=== PATIENT | female | born 1960 | race Caucasian/White ===

== ENCOUNTER 2017-11-12 15:00 | Outpatient (RCR) | payer BC ==
[2017-09-24 13:53] VITALS: BP 133/83
--- NOTE | 2017-09-25 09:08 | ONCOLOGY FOLLOW UP NOTE ---
EVENT DATE: September 24, 2017 REASON FOR FOLLOWUP 1. Recurrent iron deficiency anemia with history of iron infusions in the past. 2. Melena. 3. Severe fatigue. INTERIM HISTORY Esperanza returns to clinic for a follow-up visit today. She has been seen by both Drs. Hawley and Mildred in the past. She has a longstanding history of anemia, which reportedly had initially been diagnosed in 2004. A workup at that time was reportedly unremarkable in [place], to include colonoscopy and EGD. She had been on an iron supplement for a period of time, but she subsequently became iron deficient again, with unknown source of bleeding. She has received intravenous iron in the form of InFed, Venofer, and I believe Injectafer most recently. The patient went to the lab several days ago, and she brings in reports from her recent studies. Today, she reports being extremely tired. She is used to being a very vibrant and active person, and the fatigue, which has been recurrent [id number] with her iron deficiency, has been extraordinarily frustrating. 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 Work has been difficult due to fatigue, and she frequently "crashes" after returning home from work. She has not been able to run due to the excessive fatigue. Previously, per the notes, no symptoms to suggest GI blood loss were noted. Today, however, she reports that about two or three times a week she will notice either a very dark stool or a frankly black stool. She reports no recurrent epistaxis, and she has had no abnormal bruising. She had a hysterectomy years ago, and she has had no abnormal vaginal bleeding. She has noticed no blood in her urine. She reports no problems with chronic diarrhea, and she really does not have any food restrictions. Her most recent GI workup, I believe, was about five years ago. She had undergone EGD and colonoscopy which were reportedly unremarkable. She has not undergone capsule endoscopy to date. REVIEW OF SYSTEMS Otherwise negative, and all systems were reviewed. PAST MEDICAL HISTORY 1. Recurrent iron deficiency anemia. 2. History of migraine headache. PAST SURGICAL HISTORY 1. Status post foot surgery in 2010. 2. Status post hysterectomy in 2002. 3. Two reported sinus surgeries in the past. FAMILY HISTORY There is a history of both prostate cancer in a paternal grandfather, as well as breast cancer in her mother. SOCIAL HISTORY The patient is an earth boring machine operator. She drinks alcohol on occasion, but not to excess. She is a nonsmoker, and there is no history of illicit drug use. CURRENT MEDICATIONS 1. Levothyroxine. 2. Protonix. 3. Acyclovir. 4. Estrace. ALLERGIES No known drug allergies. Although the patient did have a reported reaction to NSAIDs previously. VITAL SIGNS Patient is afebrile. Blood pressure 133/83, heart rate is 58, respirations 16, oxygen saturation is 97% on room air. PHYSICAL EXAMINATION GENERAL: Patient is alert and oriented times three, in no apparent distress sitting in the exam room chair. She appears healthy, but somewhat tired. She is interactive and pleasant. HEENT: Exam reveals anicteric sclerae. NEUROLOGIC: Exam is grossly nonfocal and her gait is normal. EXTREMITIES: Exam reveals no edema, clubbing or cyanosis. There is no erythema or tenderness to palpation of the extremities. SKIN: Exam reveals no concerning rash or lesion. LABORATORY STUDIES From September 10: Serum ferritin of 14. Her white blood cell count was 6000 with a normal differential. Hemoglobin 12.3, hematocrit 36.9, platelet count 303,000. MCV is 95. ASSESSMENT AND PLAN Recurrent iron deficiency due to chronic blood loss. I had a good visit with Esperanza today. We spent time reviewing her hematologic history dating back years. She had not had any documented symptoms to suggest blood loss historically, but she does report rather frequent melena today. Otherwise her bleeding history is unremarkable. She has received intravenous iron in the past , in the form of NSAIDs, Venofer, and Injectafer, I believe. She had done well with all of these infusions with the exception of InFed, to which she had a reaction. She does feel much better after receiving these infusions. With her prior reportedly normal EGD and colonoscopy, the obvious concern would be for bleeding from a small bowel source. I do think it would be singleton for her to visit with a factorer, and I will refer her to see Dr. Lucero Kelly with the [facility] for Gastroenterology in [place]. One possibility would certainly be for small bowel arteriovenous malformations, or possibly Hiram lesions with an associated hiatal hernia. I have recommended to Esperanza that she begin a surveillance program that is a bit more strict. Previously, she had been checking her labs about every three months. I think it would be worthwhile, given her history, to have her go to the lab once monthly in the future for a CBC, ferritin, and iron panel. In this way, we would hope to stay ahead of recurrent iron deficiency due to blood loss, and allow for intravenous iron to be administered in lesser amounts before she becomes so profoundly symptomatic. She agrees with this plan. Next steps, in addition to visiting with gastroenterology, will be for her to receive four weekly infusions of Venofer, or Injectafer at equivalent dosing. I would have her return to the lab about two weeks after her final infusion for repeat blood counts and iron studies. I will plan to see her back at that point to review her labs. The patient had several further questions today, and I believe I answered all of these questions to her satisfaction. I spent a total of 30 minutes with the patient today, and 25 minutes of this was spent in direct counseling and coordination of care. YAAKOV
--- NOTE | 2017-09-25 12:55 | ONCOLOGY FOLLOW UP NOTE ---
EVENT DATE: September 24, 2017 REASON FOR FOLLOWUP 1. Recurrent iron deficiency anemia with history of iron infusions in the past. 2. Melena. 3. Severe fatigue. INTERIM HISTORY Esperanza returns to clinic for a follow-up visit today. She has been seen by both Drs. Hawley and Mildred in the past. She has a longstanding history of anemia, which reportedly had initially been diagnosed in 2004. A workup at that time was reportedly unremarkable in [place], to include colonoscopy and EGD. She had been on an iron supplement for a period of time, but she subsequently became iron deficient again, with unknown source of bleeding. She has received intravenous iron in the form of InFed, Venofer, and I believe Injectafer most recently. The patient went to the lab several days ago, and she brings in reports from her recent studies. Today, she reports being extremely tired. She is used to being a very vibrant and active person, and the fatigue, which has been recurrent [id number] with her iron deficiency, has been extraordinarily frustrating. 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 Work has been difficult due to fatigue, and she frequently "crashes" after returning home from work. She has not been able to run due to the excessive fatigue. Previously, per the notes, no symptoms to suggest GI blood loss were noted. Today, however, she reports that about two or three times a week she will notice either a very dark stool or a frankly black stool. She reports no recurrent epistaxis, and she has had no abnormal bruising. She had a hysterectomy years ago, and she has had no abnormal vaginal bleeding. She has noticed no blood in her urine. She reports no problems with chronic diarrhea, and she really does not have any food restrictions. Her most recent GI workup, I believe, was about five years ago. She had undergone EGD and colonoscopy which were reportedly unremarkable. She has not undergone capsule endoscopy to date. REVIEW OF SYSTEMS Otherwise negative, and all systems were reviewed. PAST MEDICAL HISTORY 1. Recurrent iron deficiency anemia. 2. History of migraine headache. PAST SURGICAL HISTORY 1. Status post foot surgery in 2010. 2. Status post hysterectomy in 2002. 3. Two reported sinus surgeries in the past. FAMILY HISTORY There is a history of both prostate cancer in a paternal grandfather, as well as breast cancer in her mother. 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 She drinks alcohol on occasion, but not to excess. She is a nonsmoker, and there is no history of illicit drug use. CURRENT MEDICATIONS 1. Levothyroxine. 2. Protonix. 3. Acyclovir. 4. Estrace. ALLERGIES No known drug allergies. Although the patient did have a reported reaction to NSAIDs previously. VITAL SIGNS Patient is afebrile. Blood pressure 133/83, heart rate is 58, respirations 16, oxygen saturation is 97% on room air. PHYSICAL EXAMINATION GENERAL: Patient is alert and oriented times three, in no apparent distress sitting in the exam room chair. She appears healthy, but somewhat tired. She is interactive and pleasant. HEENT: Exam reveals anicteric sclerae. NEUROLOGIC: Exam is grossly nonfocal and her gait is normal. EXTREMITIES: Exam reveals no edema, clubbing or cyanosis. There is no erythema or tenderness to palpation of the extremities. SKIN: Exam reveals no concerning rash or lesion. LABORATORY STUDIES From September 10: Serum ferritin of 14. Her white blood cell count was 6000 with a normal differential. Hemoglobin 12.3, hematocrit 36.9, platelet count 303,000. MCV is 95. ASSESSMENT AND PLAN Recurrent iron deficiency due to chronic blood loss. I had a good visit with Esperanza today. We spent time reviewing her hematologic history dating back years. She had not had any documented symptoms to suggest blood loss historically, but she does report rather frequent melena today. Otherwise her bleeding history is unremarkable. She has received intravenous iron in the past , in the form of NSAIDs, Venofer, and Injectafer, I believe. She had done well with all of these infusions with the exception of InFed, to which she had a reaction. She does feel much better after receiving these infusions. With her prior reportedly normal EGD and colonoscopy, the obvious concern would be for bleeding from a small bowel source. I do think it would be singleton for her to visit with a nurse school, and I will refer her to see Dr. Lucero Kelly with the [facility] for G[facility]enterology in [place]. One possibility would certainly be for small bowel arteriovenous malformations, or possibly Hiram lesions with an associated hiatal hernia. I have recommended to Esperanza that she begin a surveillance program that is a bit more strict. Previously, she had been checking her labs about every three months. I think it would be worthwhile, given her history, to have her go to the lab once monthly in the future for a CBC, ferritin, and iron panel. In this way, we would hope to stay ahead of recurrent iron deficiency due to blood loss, and allow for intravenous iron to be administered in lesser amounts before she becomes so profoundly symptomatic. She agrees with this plan. Next steps, in addition to visiting with gastroenterology, will be for her to receive four weekly infusions of Venofer, or Injectafer at equivalent dosing. I would have her return to the lab about two weeks after her final infusion for repeat blood counts and iron studies. I will plan to see her back at that point to review her labs. The patient had several further questions today, and I believe I answered all of these questions to her satisfaction. I spent a total of 30 minutes with the patient today, and 25 minutes of this was spent in direct counseling and coordination of care. YAAKOV
[2017-10-06] MEDS: IRON SUCROSE 100 MG/5 ML VIAL IVP PRN (16:09)
[2017-10-06 16:14] VITALS: BP 114/84
[2017-10-06] MEDS: LIDOCAINE/SOD BICARB 8.4% SYR ID PRN (17:15)
[2017-10-06] MEDS: NS(*) 0.9% 100 ML BAG 100 ML IVPB PRN (17:16)
[2017-10-13] MEDS: IRON SUCROSE 100 MG/5 ML VIAL IVP PRN (16:07)
[2017-10-13 16:12] VITALS: BP 101/68
[2017-10-13 17:12] VITALS: BP 117/66
[2017-10-20] MEDS: IRON SUCROSE 100 MG/5 ML VIAL IVP PRN (16:02)
[2017-10-20 16:10] VITALS: BP 114/85
[2017-10-20] MEDS: NS(*) 0.9% 100 ML BAG 100 ML IVPB PRN (16:19)
[2017-10-20] MEDS: LIDOCAINE/SOD BICARB 8.4% SYR ID PRN (16:19)
[2017-10-27 16:01] VITALS: BP 120/80
[2017-10-27] MEDS: IRON SUCROSE 100 MG/5 ML VIAL IVP PRN (16:06)
[2017-10-27] MEDS: LIDOCAINE/SOD BICARB 8.4% SYR ID PRN (16:59)
[2017-10-27] MEDS: NS(*) 0.9% 100 ML BAG 100 ML IVPB PRN (16:59)
[2017-11-10 16:49] VITALS: BP 120/84
[2017-11-10 16:54] LABS: PLATELET COUNT, AUTOMATED 277 K/uL (150-450)
[~2017-11-12] VITALS: Ht 170.2 cm; Wt 56.2 kg
[~2017-11-12 15:00] MED LIST: ACY200 PO; ACYCLOVIR; BUP75 PO; CYAN10007 PO; DEXTROSE 5%(*) 100 ML BAG 100 ML IVPB PRN; ESTR1 PO; FERR220S15 PO; HYDR2TAB74 PO; LEVO75TA73 PO; LEVOXYL PO; LOR5 PO; MULT-1097 PO; ONDA4TAB PO; OXYC-373 PO; OXYC-689 PO; OXYC5TAB38 PO; PAN20 PO; PROM-110 PO; QUET100T29 PO; SERT20OR6 PO; VORT10TA PO; [UNRECOGNIZED DRUG - OTHER] PO
[2017-11-12 15:04] VITALS: BP 138/88
--- NOTE | 2017-11-20 18:51 | ONCOLOGY FOLLOW UP NOTE ---
EVENT DATE: 11/12/2017 REASON FOR FOLLOWUP Recurrent iron deficiency anemia due to GI blood loss. INTERIM HISTORY: Esperanza returns to clinic for a follow-up visit today. She has completed four infusions of Venofer, and she did quite well with them. She has also been seen in the gastroenterology clinic. She has undergone endoscopies and pill endoscopy. Symptomatically, she reports that her fatigue has improved. She reports no shortness of breath, chest pain, or cough. She has had no lightheadedness. She reports no melena or hematochezia. She states that there is an area in the bowel noted on her capsule endoscopy that is suspicious for the source of blood loss. She is no longer using NSAIDs. REVIEW OF SYSTEMS Otherwise negative, and all systems were reviewed. PAST MEDICAL HISTORY 1. Recurrent iron deficiency anemia. 2. History of migraine headache. PAST SURGICAL HISTORY 1. Status post foot surgery in 2010. 2. Status post hysterectomy in 2002. 3. Two reported sinus surgeries in the past. FAMILY HISTORY There is a history of both prostate cancer in a paternal grandfather, as well as breast cancer in her mother. 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 She drinks alcohol on occasion, but not to excess. She is a nonsmoker, and there is no history of illicit drug use. CURRENT MEDICATIONS 1. Levothyroxine. 2. Protonix. 3. Acyclovir. 4. Estrace. ALLERGIES No known drug allergies. Although the patient did have a reported reaction to NSAIDs previously. VITAL SIGNS Temperature 97.0, blood pressure 138/88, pulse is 55, respirations 16, oxygen saturation is 95% on room air. Weight is 56.2 kg. PHYSICAL EXAMINATION GENERAL: Patient is alert and oriented times three, in no apparent distress sitting in the exam room chair. She appears healthy. She is less pale. HEENT: Exam reveals anicteric sclerae. NEUROLOGIC: Exam is grossly nonfocal and her gait is normal. EXTREMITIES: Exam reveals no edema, clubbing or cyanosis. SKIN: Exam reveals no concerning rash or lesion. LABORATORY STUDIES [facility] ASSESSMENT AND PLAN Iron deficiency anemia due to gastrointestinal blood loss. Symptomatically, Esperanza is doing much better. She has completed four weekly infusions of Venofer, which she tolerated quite well. She has also undergone GI workup to include pill endoscopy. Although I do not have the official report from the capsule endoscopy, it does seem that she had at least one area of erosion that is suspicious for site of bleeding. She is no longer taking NSAIDs, and she will have GI followup. She does not have active symptoms to suggest blood loss. We discussed the plan moving forward for surveillance of her labs, to include CBC, ferritin, and iron panel. She can have these done every four to six weeks on average if she would like. We will keep an eye on her numbers and infuse Venofer as needed in the future. I will plan to see her back in one year , or sooner if there are questions or concerns. YAAKOV
[2017-11-24] MEDS ORDERED: CEPH-13 PO (11:11)
[2017-11-24] MEDS ORDERED: LOR5/325 PO (11:11)
[2017-11-25] MEDS ORDERED: LOR5/325 PO (08:44)
== END 2017-12-22 ==
LOC: ONC 15:00
PROVIDERS: ATTEND Internal Medicine Hematology
DX: D50.0 Iron deficiency anemia secondary to blood loss (chronic) (principal); K92.1 Melena; R53.83 Other fatigue
CPT/HCPCS: 96365; 96374; 99212; J1756; J7050; 36415; 82728; 83540; 83550; 85025

== ENCOUNTER 2018-01-16 12:21 | Outpatient (RCR) | payer BC ==
[~2018-01-16 12:21] MED LIST changes: +CEPH-13 PO; -DEXTROSE 5%(*) 100 ML BAG 100 ML IVPB PRN; +LOR5/325 PO; +SERT-173 PO; -SERT20OR6 PO
[2018-01-16 12:45] VITALS: BP 135/89
[2018-01-16 12:54] LABS: PLATELET COUNT, AUTOMATED 277 K/uL (150-450)
[2018-01-30] MEDS ORDERED: DILT120C18 PO (17:52)
[2018-01-30] MEDS ORDERED: OXYC-865 PO (19:24)
[2018-01-30] MEDS ORDERED: ONDA4TAB PO (19:24)
== END 2018-02-25 15:30 | disposition home or self-care (01) ==
LOC: ONC 12:21
PROVIDERS: ATTEND Internal Medicine Medical Oncology
DX: D50.9 Iron deficiency anemia, unspecified (principal)
CPT/HCPCS: 36415; 82728; 83540; 83550; 85025

== ENCOUNTER 2018-01-30 17:42 | Emergency (ER) | payer BC ==
[2018-01-30] MEDS ORDERED: DILT120C18 PO (17:52)
--- NOTE | 2018-01-30 18:00 | ER Report ---
History and Physical Time Seen By MD: 18:00 Hx. of Stated Complaint: MIGRAINE WITH DIZZINESS, NAUSEA, NECK PAIN SINCE THIS AM. REPORTS THAT THIS IS DIFFERENT THAN PREVIOUS MIGRAINES IN THE PAST. HPI/ROS CHIEF COMPLAINT: Migraine headache HISTORY OF PRESENT ILLNESS: 57-year-old female presents to the ER complaining of severe migraine headache since this morning. She's had severe nausea. One episode of vomiting. Patient has complex medical history. One week ago. She was started on Cardizem CD for prevention of vasospasm. She has some chronic sores on her feet. She stated when she started the medicine a week ago. She spent a day in bed sleeping. She had slurred speech and her eyes are crossing her significant other was concerned she may be having a stroke. She did not seek medical treatment. Throughout the week. She's been lethargic and not herself. Patient denies recent infectious symptoms such as rhinitis, sinus congestion, sore throat or fever or chills. She notes photophobia and nausea associated with her headache. She states her last migraine was 10 years ago. This headache feels different than her usual headaches. Review of patient's imaging records show a normal brain MRI from 2008. She has a normal. Facial CT from 03/2013. No recent head imaging studies are noted. REVIEW OF SYSTEMS: Respiratory: No cough, no dyspnea. Cardiovascular: No chest pain, no palpitations. Gastrointestinal: No vomiting, no abdominal pain. Musculoskeletal: No back pain. Allergies: Coded Allergies: No Known Allergies (Unverified Allergy, Mild, 01/30/18) Home Meds Active Scripts Ondansetron (ZOFRAN ODT) 4 Mg Tab.rapdis, 4 MG PO every 6 hours Y for NAUSEA/ VOMITING, #10 TAB TAKE 1 TABLET BY MOUTH EVERY 12 HOURS Prov:FLIP BURGOS DO 01/30/18 Oxycodone Hcl/Acetaminophen (PERCOCET 5-325 MG TABLET) 1 Each Tablet, 1 EACH PO Q4-6H Y for PAIN, #10 Prov:FLIP BURGOS DO 01/30/18 Hydrocodone Bit/Acetaminophen (HYDROCODON-ACETAMINOPHEN 5-325) 1 Each Tablet, 1 EACH PO Q4-6H Y for PAIN, #12 TAB 0 Refills TAKE ONE TABLET BY MOUTH EVERY 4-6 HOURS NEEDED FOR PAIN Prov:RIGOBERTO NOLEN MD 11/25/17 Reported Medications Diltiazem Hcl (DILTIAZEM 24HR CD) 120 Mg Cap.er.24h, 120 MG PO DAILY 01/30/18 Levothyroxine Sodium (LEVOTHYROXINE SODIUM) 75 Mcg Tablet, 88 MCG PO QDAY, TAB 09/11/16 Pantoprazole Sod (Protonix) 20 Mg Tabec, 20 MG PO QDAY 07/17/12 Acyclovir (Zovirax) 200 Mg Cap, 200 MG PO DAILY 07/17/12 Estradiol (Estrace) 1 Mg Tab, 2 MG PO QDAY, 0 Refills 02/07/11 Discontinued Scripts Hydrocodone Bit/Acetaminophen (HYDROCODON-ACETAMINOPHEN 5-325) 1 Each Tablet, 1 EACH PO Q4-6H Y for PAIN, #12 TAB 0 Refills TAKE ONE TABLET BY MOUTH EVERY 4-6 HOURS NEEDED FOR PAIN Prov:RIGOBERTO NOLEN MD 11/24/17 Cephalexin (KEFLEX) 500 Mg Capsule, 500 MG PO Q6H, #28 CAP 0 Refills TAKE ONE CAPSULE BY MOUTH EVERY SIX HOURS Prov:RIGOBERTO NOLEN MD 11/24/17 Past Medical/Surgical History PAST MEDICAL HISTORY 1. Recurrent iron deficiency anemia. 2. History of migraine headache. PAST SURGICAL HISTORY 1. Status post foot surgery in 2010. 2. Status post hysterectomy in 2002. 3. Two reported sinus surgeries in the past. Reviewed Nurses Notes: Yes Old Medical Records Reviewed: Yes Hx Smoking: No Smoking Status: Never Smoker Exposure to Second Hand Smoke?: No Hx Substance Use Disorder: No Hx Alcohol Use: Yes (OCC) Constitutional Vital Sign - Last 24 Hours 01/30/18 01/30/18 01/30/18 01/30/18 17:47 17:52 17:57 18:00 Temp 97.5 Pulse 55 86 Resp 16 B/P (MAP) 155/93 142/100 (114) 142/84 (103) Pulse Ox 93 98 O2 Delivery Room Air 01/30/18 01/30/18 01/30/18 01/30/18 18:12 18:27 18:27 18:42 Pulse ? 46 Resp 14 Pulse Ox 100 100 100 O2 Flow Rate 2.0 01/30/18 01/30/18 01/30/18 18:57 19:00 19:12 Pulse 57 45 Resp 11 11 B/P (MAP) 119/78 (92) Pulse Ox 100 100 Intake and Output 01/30/18 01/30/18 01/31/18 15:00 23:00 07:00 Intake Total 1000 ml Balance 1000 ml Physical Exam Vital signs stable, afebrile, pulse ox normal General Appearance: The patient is alert, has no immediate need for airway protection and no signs of toxicity. Moderate distress Eyes: Pupils equal and round no pallor or injection.+ Photophobia ENT, Mouth: Mucous membranes are moist. Respiratory: There are no retractions, lungs are clear to auscultation. Cardiovascular: Regular rate and rhythm. Gastrointestinal: Abdomen is soft and non tender, no masses, bowel sounds normal. Neurological: Alert and oriented 3, cranial nerves II through XII intact motor 5/5 all groups, sensory intact to light touch 4, cerebellum grossly intact Skin: Warm and dry, no rashes. Musculoskeletal: Neck is supple non tender. Extremities are nontender, nonswollen and have full range of motion. 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 Medical Decision Making Data Points Result Diagram: 01/30/18 1810 01/30/18 1810 Laboratory Hematology Test 01/30/18 18:10 Red Blood Count 4.67 M/uL (4.17-5.56) Mean Corpuscular Volume 93.1 fL (80.0-96.0) Mean Corpuscular Hemoglobin 31.6 pg (26.0-33.0) Mean Corpuscular Hemoglobin Concent 34.0 g/dL (32.0-36.0) Red Cell Distribution Width 13.6 % (11.5-14.5) Mean Platelet Volume 6.8 fL (7.2-11.1) Neutrophils (%) (Auto) 48.6 % (39.4-72.5) Lymphocytes (%) (Auto) 33.5 % (17.6-49.6) Monocytes (%) (Auto) 14.8 % (4.1-12.4) Eosinophils (%) (Auto) 2.0 % (0.4-6.7) Basophils (%) (Auto) 1.1 % (0.3-1.4) Nucleated RBC Relative Count (auto) 0.1 /100WBC Neutrophils # (Auto) 2.3 K/uL (2.0-7.4) Lymphocytes # (Auto) 1.6 K/uL (1.3-3.6) Monocytes # (Auto) 0.7 K/uL (0.3-1.0) Eosinophils # (Auto) 0.1 K/uL (0.0-0.5) Basophils # (Auto) 0.1 K/uL (0.0-0.1) Nucleated RBC Absolute Count (auto) 0.00 K/uL Erythrocyte Sedimentation Rate 1 mm/HOUR (0-30) Sodium Level 133 mmol/L (137-145) Potassium Level 3.2 mmol/L (3.5-5.0) Chloride Level 95 mmol/L (98-107) Carbon Dioxide Level 26 mmol/L (22-31) Blood Urea Nitrogen 13 mg/dl (7-18) Creatinine 0.80 mg/dl (0.52-1.04) Glomerular Filtration Rate Calc > 60.0 Random Glucose 90 mg/dl (75-110) Calcium Level 9.4 mg/dl (8.4-10.2) Total Bilirubin 0.4 mg/dl (0.2-1.3) Aspartate Amino Transf (AST/SGOT) 32 U/L (0-35) Alanine Aminotransferase (ALT/SGPT) 34 U/L (0-56) Alkaline Phosphatase 62 U/L (0-126) C-Reactive Protein < 0.5 mg/dl (<1.0) Total Protein 7.1 gm/dl (6.3-8.2) Albumin 4.1 g/dl (3.5-5.0) Chemistry Test 01/30/18 18:10 White Blood Count 4.7 k/uL (4.5-11.0) Red Blood Count 4.67 M/uL (4.17-5.56) Hemoglobin 14.8 g/dL (12.0-16.0) Hematocrit 43.5 % (34.0-47.0) Mean Corpuscular Volume 93.1 fL (80.0-96.0) Mean Corpuscular Hemoglobin 31.6 pg (26.0-33.0) Mean Corpuscular Hemoglobin Concent 34.0 g/dL (32.0-36.0) Red Cell Distribution Width 13.6 % (11.5-14.5) Platelet Count 243 K/uL (150-450) Mean Platelet Volume 6.8 fL (7.2-11.1) Neutrophils (%) (Auto) 48.6 % (39.4-72.5) Lymphocytes (%) (Auto) 33.5 % (17.6-49.6) Monocytes (%) (Auto) 14.8 % (4.1-12.4) Eosinophils (%) (Auto) 2.0 % (0.4-6.7) Basophils (%) (Auto) 1.1 % (0.3-1.4) Nucleated RBC Relative Count (auto) 0.1 /100WBC Neutrophils # (Auto) 2.3 K/uL (2.0-7.4) Lymphocytes # (Auto) 1.6 K/uL (1.3-3.6) Monocytes # (Auto) 0.7 K/uL (0.3-1.0) Eosinophils # (Auto) 0.1 K/uL (0.0-0.5) Basophils # (Auto) 0.1 K/uL (0.0-0.1) Nucleated RBC Absolute Count (auto) 0.00 K/uL Erythrocyte Sedimentation Rate 1 mm/HOUR (0-30) Glomerular Filtration Rate Calc > 60.0 Calcium Level 9.4 mg/dl (8.4-10.2) Total Bilirubin 0.4 mg/dl (0.2-1.3) Aspartate Amino Transf (AST/SGOT) 32 U/L (0-35) Alanine Aminotransferase (ALT/SGPT) 34 U/L (0-56) Alkaline Phosphatase 62 U/L (0-126) C-Reactive Protein < 0.5 mg/dl (<1.0) Total Protein 7.1 gm/dl (6.3-8.2) Albumin 4.1 g/dl (3.5-5.0) EKG/Imaging Imaging Results: CT scan of the head was obtained. The results of the study are CT OF THE BRAIN WITHOUT CONTRAST HISTORY: Headache PROCEDURE: 3.0 mm contiguous axial sections were performed through the brain. Sagittal and coronal reformats were submitted. COMPARISON: None FINDINGS: BRAIN: Brain and intracranial structures: There is no mass lesion, hemorrhage or acute infarct. Orbits (included portions): Normal. Scalp: Normal. Skull: Normal. Paranasal sinuses and mastoid air cells (included portions): The medial maxillary sinus hurtado have been resected. IMPRESSION: No evidence of acute intracranial abnormality. The study was read by the radiologist. I viewed the images myself on the PACS system. ED Course/Re-evaluation Clinical Indication for ER IV: Hydration, IV Access ED Course Patient was admitted to an examination room. H&P was done. The differential diagnoses was considered. On clinical examination. Patient is nonfocal neurologic examination. She has a headache. She recently was started on Cardizem. She's been having adverse medication reactions do this. She has no infectious symptoms. Her diagnostic studies show normal WBC count. Patient has a CT scan performed. Which was unremarkable. Results are discussed with the patient. She has some chronic foot wounds that she is concerned about. Wounds. No signs of infection. They appear to be pressure sores on her feet. 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 Patient was advised to follow-up with wound care clinic. She is advised to get a referral from her primary care for wound clinic. Decision to Disposition Date: Jan 30, 2018 Decision to Disposition Time: 19:21 Depart Departure Latest Vital Signs Vital Signs Date Time Temp Pulse Resp B/P (MAP) Pulse Ox O2 Delivery O2 Flow Rate FiO2 01/30/18 19:12 45 11 100 01/30/18 19:00 119/78 (92) 01/30/18 18:27 2.0 01/30/18 17:47 97.5 Room Air Impression: Primary Impression: Migraine headache Additional Impressions: Open wound of foot Adverse effects of medication Condition: Improved Disposition: HOME OR SELF-CARE Referrals: MELQUIADES BROWN DO (PCP) New Scripts Ondansetron (ZOFRAN ODT) 4 Mg Tab.rapdis 4 MG PO every 6 hours Y for NAUSEA/VOMITING, #10 TAB TAKE 1 TABLET BY MOUTH EVERY 12 HOURS Prov: FLIP BURGOS DO 01/30/18 Oxycodone Hcl/Acetaminophen (PERCOCET 5-325 MG TABLET) 1 Each Tablet 1 EACH PO Q4-6H Y for PAIN, #10 Prov: FLIP BURGOS DO 01/30/18 Patient Instructions: Acute Headache (ED) Additional Instructions: Stop taking Cardizem Follow-up with Dr. Brown for referral to wound care clinic for your feet Outpatient wound care clinic part of rehabilitation services. Call . You may need a referral from your primary care DR Brown for evaluation and treatment Problem Qualifiers Primary Impression: Migraine headache Migraine type: unspecified Status migrainosus presence: with status migrainosus Intractability: not intractable Qualified Codes: G43.901 - Migraine, unspecified, not intractable, with status migrainosus Additional Impressions: Open wound of foot Encounter type: initial encounter Laterality: unspecified laterality Qualified Codes: S91.309A - Unspecified open wound, unspecified foot, initial encounter Adverse effects of medication Encounter type: initial encounter Qualified Codes: T88.7XXA - Unspecified adverse effect of drug or medicament, initial encounter FLIP BURGOS DO Jan 30, 2018 18:00
[2018-01-30] MEDS ORDERED: NS(*) 0.9% 1000 ML BAG 1,000 ML IV ONE (18:08)
[2018-01-30] MEDS ORDERED: DEXAMETHASONE SOD PHOS 10MG/ML IVP ONE (18:10)
[2018-01-30] MEDS ORDERED: diphenhydrAMINE 50 MG/ML VIAL IVP ONE (18:10)
[2018-01-30] MEDS ORDERED: fentaNYL CITR 100 MCG/2 ML AMP IVP ONE ×2 (18:10→18:15)
[2018-01-30] MEDS ORDERED: PROMETHAZINE 25 MG/ML 1 ML AMP IVP ONE (18:10)
[2018-01-30] MEDS ORDERED: ONDANSETRON 4 MG/2 ML VIAL IVP ONE (18:10)
[2018-01-30 18:31] LABS: PLATELET COUNT, AUTOMATED 243 K/uL (150-450)
[2018-01-30 19:00] VITALS: BP 119/78
--- NOTE | 2018-01-30 19:10 | RADIOLOGY IMAGING REPORT ---
FACILITY: [facility] - [place] PATIENT NAME: Esperanza Patton : 1960 MR: [id number] V: [id number] EXAM DATE: ORDERING PHYSICIAN: FLIP BURGOS TECHNOLOGIST: Location: [facility] - [place] Patient: Esperanza Patton : 1960 Visit/Account:[id number] Date of Sevice: 01/30/2018 CT OF THE BRAIN WITHOUT CONTRAST HISTORY: Headache PROCEDURE: 3.0 mm contiguous axial sections were performed through the brain. Sagittal and coronal r eformats were submitted. COMPARISON: None FINDINGS: BRAIN: Brain and intracranial structures: There is no mass lesion, hemorrhage or acute infarct. Orbits (included portions): Normal. Scalp: Normal. Skull: Normal. Paranasal sinuses and mastoid air cells (included portions): The medial maxillary sinus hurtado have be en resected. IMPRESSION: No evidence of acute intracranial abnormality. One of the following dose optimization techniques was utilized in the performance of this exam: Autom ated exposure control; adjustment of the mA and/or kV according to the patient's size; or use of an i terative reconstruction technique. Specific details can be referenced in the facility's radiology C T exam operational policy. Report Dictated By: Hansel Samaniego MD at 01/30/2018 6:55 PM Report E-Signed By: Hansel Samaniego MD at 01/30/2018 7:06 PM WSN:[id number]
[2018-01-30] MEDS ORDERED: ONDA4TAB PO (19:24)
[2018-01-30] MEDS ORDERED: OXYC-865 PO (19:24)
== END 2018-01-30 19:33 | disposition home or self-care (01) ==
LOC: ER 18:25
DX: G43.901 Migraine, unspecified, not intractable, with status migrainosus (principal); S91.309A Unspecified open wound, unspecified foot, initial encounter; T88.7XXA Unspecified adverse effect of drug or medicament, initial encounter
CPT/HCPCS: 70450; 85025; 85651; 86140; 96361; 96374; 96375; 99284; J1100; J1200; J2405; J2550; J3010; J7030; 82040; 82247; 82310; 82374; 82435; 82565; 82947; 84075; 84132; 84155; 84295; 84450; 84460; 84520

== ENCOUNTER 2018-03-13 15:45 | Outpatient (RCR) | payer BC ==
--- NOTE | 2018-02-13 20:37 | PT INITIAL EVALUATION ---
MEDICAL DIAGNOSIS: Friction ulcers and callous formation at B) plantar surface of feet TREATMENT DIAGNOSIS: same DATE OF ONSET: January 2018 SUBJECTIVE: Pt had been prescribed Cardizem for vasospasms, but this was d/c due to adverse reaction. 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 Pt states that she has undergone vascular checks and it has been noted, per pt report, that she has good blood flow to B) feet. As pt presents today, after walking in the snow, the toes of the L) foot are rather purple in color, but improve after warming up. Pt reports that she has been seen by Dr. Kee at [facility] regarding custom orthodics and these have been modified. Pt has not, however, followed up with him regarding recent changes related to wounds. Pt notes that she has been on vacation over the last week, thus her wound care visit was postponed. Pt states she did quite a bit of swimming in the ocean and feels her wounds are improved overall now. REHAB PROBLEM LIST: Open wounds to plantar surfaces of B) feet. 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 OBJECTIVE: R) Great toe plantar surface of distal phalanx: 1.4cm L x 1.6cm W x 0.1cm D L) Plantar surface of MTP joints across foot: 0.5cm L x 4cm W x 0.1cm D L) heel (achilles area); unroofed blister: 0.5cm L x 1.5cm W x 0.1cm D. ASSESSMENT: All wounds cleansed with sterile saline and non-excisional debridement completed as needed to areas of non-viable tissue and callous. R) great toe treated with collagen matrix product and covered with bordered gauze dressing. L) MTP joints and unroofed blister at L) heel treated with vasaline with A&D and covered with bordered gauze dressing. Pt encouraged to leave dressings on as long as possible and only change if dressings become overly saturated, contaminated or dislodged. Short Term Goals 1. Pt to maintain clean, dry and intact dressings between visits 2. Wound beds to demo full epithelialization 3. Pt to demo understanding of basic moisturizing foot care to prevent future cracks 4. Pt to follow up with foot and ankle specialist regarding further orthodic modifications to prevent further injury. Patient's Goals Wounds to heal without further complication. PLAN: Patient to be seen for debridement of any non-viable tissue and slough as indicated and perform dressing changes to manage drainage, allowing for an optimal moist wound bed for efficient healing. Pt education also to incorporate future skin care and prevention strategies. 1x/Week for up to 3 months Thank you for this referral. If you have any questions, comments, or concerns about this report or plan, please contact me at . H. Lucero Burch, PT, MPT MTDD
[~2018-03-13 15:45] MED LIST changes: +DILT120C18 PO; +OXYC-865 PO
--- NOTE | 2018-03-14 00:10 | PT PLAN OF CARE ---
Physician: Dr. Brown Patient is being seen: Esperanza Patton Therapist: Mima Burch, PT , MPT Medical Diagnosis: Friction ulcers and callous formation at B) plantar feet Treatment Diagnosis: same Date of Onset:02/15 Date of Initial Evaluation: 02/13/18 Date patient was last seen: 03/13/18 Number of treatments: 4 Number of cancellations/No shows: 1 INTERVENTIONS: Debridement of any non-viable tissue and slough as indicated and perform dressing changes to manage drainage, allowing for an optimal moist wound bed for efficient healing. Pt education also to incorporate future skin care and prevention strategies. GOALS: (Met) 1. Pt to maintain clean, dry and intact dressings between visits 2. Wound beds to demo full epithelialization 3. Pt to demo understanding of basic moisturizing foot care to prevent future cracks 4. Pt to follow up with foot and ankle specialist regarding further orthotic modifications to prevent further injury. PATIENT'S GOAL: Wounds to heal without further complication. Status of Patient's Goals: Met Patient Compliance: Good Prognosis: Excellent Reasons for continuing therapy: None at this time as wounds are healed. Pt arrives with B) feet covered only by socks and notes no drainage currently. Pt indicates that she has been applying vasaline to B) feet to address the cracks and has noticed an improvement overall. Pt states that her R) toe is experiencing a "burning" sensation which is typical when the skin begins to breakdown, per pt report. Wound at this location is nearly closed, but still requires some protection and pt instructed on further strategies to prevent injury and breakdown while fragile skin is remodeling. Currently healed with a non-draining small area still noted with fresh epithelium at R) great toe that measures 0.1cm L x 0.1cm W. Original wound measurements: R) Great toe plantar surface of distal phalanx: 1.4cm L x 1.6cm W x 0.1cm D L) Plantar surface of MTP joints across foot: 0.5cm L x 4cm W x 0.1cm D L) heel (achilles area); unroofed blister: 0.5cm L x 1.5cm W x 0.1cm D. Thank you for this referral. If you have any questions, comments, or concerns about this report or plan, please contact me at . Mima Burch, PT, MPT MTDD
== END 2018-03-13 18:00 | disposition home or self-care (01) ==
LOC: PT 15:45
PROVIDERS: ATTEND Family Medicine
DX: L89.622 Pressure ulcer of left heel, stage 2 (principal); L89.892 Pressure ulcer of other site, stage 2
CPT/HCPCS: 97161

== ENCOUNTER → 2018-03-30 | Outpatient (REF) | payer BC | LOC: ZZSTITCHES 10:37 | PROVIDERS: ATTEND Physician Assistant | DX: L03.116 Cellulitis of left lower limb (principal); L97.529 Non-pressure chronic ulcer of other part of left foot with unspecified severity; I73.00 Raynaud's syndrome without gangrene; M25.475 Effusion, left foot | CPT/HCPCS: 87071 ==

== ENCOUNTER 2018-04-03 14:52 | Inpatient (IN) | payer BC ==
[~2018-04-03] VITALS: Ht 170.2 cm; Wt 59.7 kg
--- NOTE | 2018-04-03 15:07 | HISTORY AND PHYSICAL ---
DATE OF ADMISSION: April 03, 2018 CHIEF COMPLAINT Pain and swelling, left foot. HISTORY OF PRESENT ILLNESS This is a 57-year-old female with a few months history of recurrent wounds on her left foot. Recently, she has had increasing pain and swelling of the left foot. She has a wound on the left forefoot on the plantar surface. She was treated as an outpatient with clindamycin and wound care; however, the pain and swelling increased. She is admitted at this time for IV antibiotics. ALLERGIES She has no known allergies. CURRENT MEDICATIONS * Estradiol. * Levoxyl. * Protonix. 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 * She has had a total hysterectomy. REVIEW OF SYSTEMS No cardiac, pulmonary, liver, or kidney disease, diabetes, hypertension. No history of deep vein thrombosis. PHYSICAL EXAMINATION The left foot she has palpable dorsalis pedis. There is no pitting edema. She has a wound which is on the plantar surface of the forefoot to the lateral side , 4.5 cm x 2.5 cm. The tissue is dark, probably necrotic, but hard to tell if it is completely necrotic at this point. There is no purulent drainage. She has had superficial sloughing of the skin. She has some surrounding erythema and some swelling of the forefoot. IMPRESSION Pressure ulcer stage 2, possibly stage 3. PLAN We will admit this patient, give her IV antibiotics. We will obtain a blood count and MRI of the foot. We will consult the hospitalist to help us with the IV antibiotics. YAKAOV
[2018-04-03 15:31] VITALS: BP 134/89
[2018-04-03 15:42] LABS: PLATELET COUNT, AUTOMATED 257 K/uL (150-450)
[2018-04-03] MEDS ORDERED: ESTR2TAB26 PO (15:43)
[2018-04-03] MEDS ORDERED: CLIN300C99 PO (15:46)
[2018-04-03] MEDS ORDERED: PANT40TA65 PO (15:46)
[2018-04-03] MEDS ORDERED: LEVO88TA45 PO (15:48)
[2018-04-03] MEDS ORDERED: VALA500T63 PO (15:51)
--- NOTE | 2018-04-03 16:07 | Hospitalist Consultation ---
History of Present Illness Requesting Physician Dr. Kennedy Reason for Consult Manage antibiotics Chief Complaint Foot pain, worsening swelling, redness History of Present Illness The patient is a 57 year old female with PMH of multiple foot surgeries (due to defects) who presents with worsening of a pressure ulcer on her left foot. The patient states she developed an ulcer on her foot around Thanksgiving. It was treated with antibiotics and wound care and was almost completely healed. For reasons that are not completely clear, the wound worsened about 2 weeks ago and she was placed back on antibiotics, most recently clindamycin. Today she was seen by Dr. Kennedy in the clinic and was noted to have worsening pain, redness and swelling of the L distal foot. He directly admitted her to [facility] for IV antibiotics and wound care. The hospitalist group is asked to see the patient to manage her medications including IV antibiotics. History Problems: (1) GERD (gastroesophageal reflux disease) Status: Chronic (2) Iron deficiency anemia Status: Chronic (3) Migraine headache Status: Chronic (4) History of foot surgery Status: Chronic (5) History of hysterectomy Status: Chronic (6) Hx of sinus surgery Status: Chronic (7) Hypothyroidism Status: Chronic (8) Allergic rhinitis Status: Chronic Home Meds Active Scripts Hydrocodone Bit/Acetaminophen (HYDROCODON-ACETAMINOPHEN 5-325) 1 Each Tablet, 1 EACH PO Q4-6H Y for PAIN, #12 TAB 0 Refills TAKE ONE TABLET BY MOUTH EVERY 4-6 HOURS NEEDED FOR PAIN Prov:RIGOBERTO NOLEN MD 11/25/17 Reported Medications Valacyclovir Hcl (VALACYCLOVIR) 500 Mg Tablet, 500 MG PO HS 04/03/18 Levothyroxine Sodium (LEVOTHYROXINE SODIUM) 88 Mcg Tablet, 1 TAB PO DAILY 04/03/18 Pantoprazole Sodium (PANTOPRAZOLE SODIUM) 40 Mg Tablet.dr, 1 TAB PO DAILY 04/03/18 Clindamycin Hcl (CLINDAMYCIN HCL) 300 Mg Capsule, 1 CAP PO TID 04/03/18 Estradiol (ESTRADIOL) 2 Mg Tablet, 1 TAB PO HS 04/03/18 Discontinued Reported Medications Diltiazem Hcl (DILTIAZEM 24HR CD) 120 Mg Cap.er.24h, 120 MG PO DAILY 01/30/18 Levothyroxine Sodium (LEVOTHYROXINE SODIUM) 75 Mcg Tablet, 88 MCG PO QDAY, TAB 09/11/16 Pantoprazole Sod (Protonix) 20 Mg Tabec, 20 MG PO QDAY 07/17/12 Acyclovir (Zovirax) 200 Mg Cap, 200 MG PO DAILY 07/17/12 Estradiol (Estrace) 1 Mg Tab, 2 MG PO QDAY, 0 Refills 02/07/11 Discontinued Scripts Ondansetron (ZOFRAN ODT) 4 Mg Tab.rapdis, 4 MG PO every 6 hours Y for NAUSEA/ VOMITING, #10 TAB TAKE 1 TABLET BY MOUTH EVERY 12 HOURS Prov:FLIP BURGOS DO 01/30/18 Oxycodone Hcl/Acetaminophen (PERCOCET 5-325 MG TABLET) 1 Each Tablet, 1 EACH PO Q4-6H Y for PAIN, #10 Prov:FLIP BURGOS DO 01/30/18 Allergies: Coded Allergies: No Known Allergies (Unverified Allergy, Mild, 01/30/18) Patient History: FH: breast cancer MOTHER, Onset:58 FH: colon cancer Grand mother FH: diabetes mellitus Grand mother FH: prostate cancer FATHER FH: rheumatic fever FATHER Grand mother Grandfatehr Hx Smoking: No Smoking Status: Never Smoker Exposure to Second Hand Smoke?: No Hx Alcohol Use: Yes (OCC) Alcohol Use: Occassional Hx Substance Use Disorder: No History of IV Drug Use: No Review of Systems All Systems Reviewed/Normal: Yes, Except as Noted Constitutional: Other (Hasn't felt well for a week. ), No Fever, No Chills, No Night Sweats Musculoskeletal: Pain (L foot.) Exam Vital Signs Vital Signs Date Time Temp Pulse Resp B/P (MAP) Pulse Ox O2 Delivery O2 Flow Rate FiO2 04/03/18 18:55 97.9 56 16 132/89 (103) 95 Room Air General Appearance: Alert, Awake, No Acute Distress, Afebrile Neuro: No Gross deficits Eyes: PERRLA Cardiovascular: Other (Bradycardic, regular.) Respiratory: Clear to Auscultation GI: Abd Soft and Non-Tender Extremities: Warm, Perfused, Other (Congenital abnormalities of hands and feet. L foot with distal swelling of the lateral forefoot. Increased redness and warmth to the touch. There is a large ulcer on the plantar aspect of this area. The great toe is also swollen and red. There is a superficial ulceration of the pad of the toe.) Integumentary: Other (See above.) Psych: Alert & Oriented X3, Appropriate Mood & Affect Medical Decision Making Data Points Result Diagram: 04/03/18 1513 04/03/18 1513 Assessment and Plan Problems: (1) Cellulitis of foot Status: Acute Assessment & Plan: The patient will undergo MRI of the foot this afternoon. She failed outpatient therapy with clindamycin. WBC is normal currently. Will place on Unasyn and Vancomycin and monitor Vanco levels. Recheck labs in am. Will order a CRP. (2) GERD (gastroesophageal reflux disease) Status: Chronic Assessment & Plan: Continue pantoprazole 40mg daily. (3) Hypothyroidism Status: Chronic Assessment & Plan: Continue levothyroxine 88mcg daily. (4) Post-menopausal Status: Chronic Assessment & Plan: Continue Estradiol 2mg at HS. (5) PSVT (paroxysmal supraventricular tachycardia) Status: Chronic Assessment & Plan: Continue diltiazem ER 120mg daily. Time Spent on Plan of Care: < 30 min Venous Thromboembolism Antithrombotics Is Pt On Any Antithrombotics?: Yes Problem Qualifiers (1) GERD (gastroesophageal reflux disease): Esophagitis presence: without esophagitis Qualified Codes: K21.9 - Gastro- esophageal reflux disease without esophagitis (2) Hypothyroidism: Hypothyroidism type: acquired Qualified Codes: E03.9 - Hypothyroidism, unspecified RACHELLE MANCINI MD April 03, 2018 16:07
[2018-04-03] MEDS ORDERED: GADOBENATE 529MG/1ML 15ML VIAL IVP ONE (16:36)
[2018-04-03] MEDS: AMPICILLIN/SULBACT (*) 3 GM VL 3 GM in NS(*) 0.9% 100 ML BAG 100 ML IVPB SCH ×2 (17:04→21:53)
[2018-04-03] MEDS: APAP/HYDROCODONE 325/5 TAB PO PRN ×2 (17:04→21:05)
[2018-04-03] MEDS ORDERED: NS(*) 0.9% 500 ML BAG 500 ML ONE (17:06)
[2018-04-03] MEDS ORDERED: APAP/HYDROCODONE 325/5 TAB PO PRN (17:25)
--- NOTE | 2018-04-03 17:34 | RADIOLOGY IMAGING REPORT ---
FACILITY: [facility] [place] PATIENT NAME: Esperanza Patton : 1960 MR: [id number] V: [id number] EXAM DATE: ORDERING PHYSICIAN: MENG PEREZ TECHNOLOGIST: Location: [facility] Patient: Esperanza Patton : 1960 Visit/Account:[id number] Date of Sevice: 04/03/2018 MRI LEFT FOOT W W/O CONTRAST HISTORY: Foot infection COMPARISON: None TECHNIQUE: Multiplanar/multisequence was obtained through the left foot without and with contrast. CONTRAST: 12 cc of MultiHance FINDINGS: There is motion on multiple sequences. Soft tissues: Diffuse soft tissue edema and areas of enhancement at both the dorsum and plantar aspec t of foot most consistent with cellulitis. Bones: No bone marrow replacement to indicate osteomyelitis. Joint effusion: None significant Plantar fascia: Negative. Ligaments: Normal Tendons: Normal Other findings: None significant IMPRESSION: 1. Scattered areas of soft tissue edema and enhancement most consistent with cellulitis. No findings to indicate osteomyelitis or abscess. Report Dictated By: Arnoldo Altamirano MD at 04/03/2018 5:23 PM Report E-Signed By: Arnoldo Altamirano MD at 04/03/2018 5:31 PM WSN:[id number]
[2018-04-03 18:55] VITALS: BP 132/89
[2018-04-03] MEDS: ESTRADIOL 1 MG TAB PO SCH (20:37)
[2018-04-03] MEDS: VANCOMYCIN 1 GM ADDVIAL 1 GM in NS(*) 0.9% 250 ML ADDVAN BAG 250 ML IVPB SCH (20:37)
[2018-04-03] MEDS: valACYclovir HCL 500 MG TAB PO SCH (20:37)
[2018-04-03 23:16] VITALS: BP 130/93
[2018-04-03] MEDS: diphenhydrAMINE 25 MG CAP PO PRN (23:16)
[2018-04-04] MEDS: APAP/HYDROCODONE 325/5 TAB PO PRN ×4 (01:05→14:30)
[2018-04-04 02:59] VITALS: BP 130/84
[2018-04-04] MEDS: AMPICILLIN/SULBACT (*) 3 GM VL 3 GM in NS(*) 0.9% 100 ML BAG 100 ML IVPB SCH ×4 (04:27→21:43)
[2018-04-04] MEDS: diphenhydrAMINE 25 MG CAP PO PRN ×2 (05:08→18:22)
[2018-04-04] MEDS: LEVOTHYROXINE SOD 0.088 MG TAB PO SCH (05:08)
[2018-04-04 05:47] LABS: PLATELET COUNT, AUTOMATED 254 K/uL (150-450)
[2018-04-04 06:50] VITALS: BP 114/78
--- NOTE | 2018-04-04 07:36 | General Surgery Progress Note ---
Subjective Progress Notes Subjective no complaints, slept ok Physical Exam Vital Signs Date Time Temp Pulse Resp B/P (MAP) Pulse Ox O2 Delivery O2 Flow Rate FiO2 04/04/18 06:50 98.5 18 114/78 (90) 95 Room Air 04/04/18 02:59 52 Extremities: Other (a little less swelling and erythema. the eschar is declaring itself and appears it will need some debridement) Result Diagram: 04/04/18 0530 04/04/18 0530 Assessment and Plan Problems: (1) Cellulitis of foot Status: Acute Assessment & Plan: doing well, mri no abscess or osteomyelitis. will continue iv antibiotics Exam Sepsis Risk: No Definite Risk MENG PEREZ MD April 04, 2018 07:36
[2018-04-04] MEDS: VANCOMYCIN 1 GM ADDVIAL 1 GM in NS(*) 0.9% 250 ML ADDVAN BAG 250 ML IVPB SCH (07:50)
[2018-04-04] MEDS ORDERED: PANTOPRAZOLE SOD 40 MG TABEC PO SCH (09:00)
[2018-04-04] MEDS: ENOXAPARIN 40 MG/0.4ML SYR SC SCH (09:07)
[2018-04-04] MEDS: PANTOPRAZOLE SOD 40 MG TABEC PO SCH (09:08)
[2018-04-04] MEDS: IBUPROFEN 600 MG TAB PO PRN ×4 (09:43→17:03)
--- NOTE | 2018-04-04 10:34 | Hospitalist Progress Note ---
Subjective Progress Notes Subjective No fever. WBC count normal. Physical Exam Vital Signs Date Time Temp Pulse Resp B/P (MAP) Pulse Ox O2 Delivery O2 Flow Rate FiO2 04/04/18 08:11 98 04/04/18 06:50 98.5 18 114/78 (90) Room Air 04/04/18 02:59 52 General Appearance: Alert, Awake Integumentary: Other (The erythema has receded from marked outline and edema appears to be less/eschar over large wound on plantar aspect left foot.) Result Diagram: 04/04/18 0530 04/04/18 0530 Assessment and Plan Problems: (1) Cellulitis of foot Status: Acute Assessment & Plan: She failed outpatient therapy with clindamycin. MRI is negative for osteomyelitis, but does have evidence of cellulitis. Wound care as per Dr. Kennedy and PT. She is now on IV vancomycin and Unasyn. WBC is normal. CRP is 1.2. Will monitor vancomycin trough levels. (2) GERD (gastroesophageal reflux disease) Status: Chronic Assessment & Plan: Continue pantoprazole 40mg daily. (3) Hypothyroidism Status: Chronic Assessment & Plan: Continue levothyroxine 88mcg daily. (4) Post-menopausal Status: Chronic Assessment & Plan: Continue Estradiol 2mg at HS. (5) PSVT (paroxysmal supraventricular tachycardia) Status: Chronic Assessment & Plan: Continue diltiazem ER 120mg daily. Exam Sepsis Risk: No Definite Risk Problem Qualifiers (1) GERD (gastroesophageal reflux disease): Esophagitis presence: without esophagitis Qualified Codes: K21.9 - Gastro- esophageal reflux disease without esophagitis (2) Hypothyroidism: Hypothyroidism type: acquired Qualified Codes: E03.9 - Hypothyroidism, unspecified JULIANNE MANCINI MD April 04, 2018 10:34
[2018-04-04 12:08] VITALS: BP 124/93
[2018-04-04 12:26] VITALS: Ht 170.2 cm; Wt 59.7 kg
[2018-04-04 15:24] VITALS: BP 122/88
[2018-04-04 19:04] VITALS: BP 122/88
[2018-04-04] MEDS: VANCOMYCIN(*) 1 GM VIAL 1 GM, VANCOMYCIN (*) 0.5 GM VIAL 0.5 GM in NS(*) 0.9% 250 ML BA... IVPB SCH (19:59)
[2018-04-04] MEDS: valACYclovir HCL 500 MG TAB PO SCH (21:43)
[2018-04-04] MEDS: ESTRADIOL 1 MG TAB PO SCH (21:43)
[2018-04-05] MEDS: AMPICILLIN/SULBACT (*) 3 GM VL 3 GM in NS(*) 0.9% 100 ML BAG 100 ML IVPB SCH ×4 (03:42→22:58)
[2018-04-05 03:48] VITALS: BP 121/83
[2018-04-05] MEDS: IBUPROFEN 600 MG TAB PO PRN (03:48)
[2018-04-05] MEDS: LEVOTHYROXINE SOD 0.088 MG TAB PO SCH (04:27)
[2018-04-05 07:41] VITALS: BP 118/84
[2018-04-05] MEDS: VANCOMYCIN(*) 1 GM VIAL 1 GM, VANCOMYCIN (*) 0.5 GM VIAL 0.5 GM in NS(*) 0.9% 250 ML BA... IVPB SCH ×2 (07:43→20:46)
[2018-04-05] MEDS ORDERED: NEOMYCIN/POLYMYX/BACITR OINT 1 PACKET TP ONE (08:49)
--- NOTE | 2018-04-05 08:59 | Post Operative Progress Note ---
Post Operative Progress Note Date: April 05, 2018 Time: 08:57 Surgeon: justina Anesthesia: none Pre-Op Diagnosis: necrotic pressure lucer left forefoot Post-Op Diagnosis: same Procedure(s): sharp debridement of 3 cm by 2.5 cm ulcer MENG PEREZ MD April 05, 2018 08:59
--- NOTE | 2018-04-05 09:06 | General Surgery Progress Note ---
Subjective Progress Notes Subjective less pain feeling better Physical Exam Vital Signs Date Time Temp Pulse Resp B/P (MAP) Pulse Ox O2 Delivery O2 Flow Rate FiO2 04/05/18 07:41 97.7 54 18 118/84 (95) 93 Room Air 04/05/18 03:48 1.0 General Appearance: Alert, Awake, No Acute Distress Extremities: Other (less erythema less tenderness. less swelling. the wound was sharply debrided.) Result Diagram: 04/04/18 0530 04/04/18 0530 Assessment and Plan Problems: (1) Cellulitis of foot Status: Acute Assessment & Plan: doing well, mri no abscess or osteomyelitis. will continue iv antibiotics 04/05/18 improving continue antibiotics and wound care Exam Sepsis Risk: No Definite Risk MENG PEREZ MD April 05, 2018 09:06
[2018-04-05] MEDS: PANTOPRAZOLE SOD 40 MG TABEC PO SCH (09:18)
[2018-04-05] MEDS: ENOXAPARIN 40 MG/0.4ML SYR SC SCH (09:18)
--- NOTE | 2018-04-05 09:54 | Hospitalist Progress Note ---
Subjective Progress Notes Subjective The patient complains of some low grade nausea today. Physical Exam Vital Signs Date Time Temp Pulse Resp B/P (MAP) Pulse Ox O2 Delivery O2 Flow Rate FiO2 04/05/18 07:41 97.7 54 18 118/84 (95) 93 Room Air 04/05/18 03:48 1.0 General Appearance: Alert, Awake, No Acute Distress, Afebrile Neuro: No Gross deficits Eyes: PERRLA Cardiovascular: Regular Rate and Rhythm Respiratory: Clear to Auscultation GI: Soft and Non-Tender Extremities: Warm, Perfused, Other (Edema and redness markedly improved. Wound over ball of foot with bandage in place. Dark red drainage note.) Integumentary: Other (See above.) Psych: Appropriate Mood & Affect Result Diagram: 04/04/1852904/04/18529 Assessment and Plan Problems: (1) Cellulitis of foot Status: Acute Assessment & Plan: She failed outpatient therapy with clindamycin. MRI is negative for osteomyelitis, but does have evidence of cellulitis. Wound care as per Dr. Kennedy and PT. She is now on IV vancomycin and Unasyn. WBC is normal. CRP is 1.2. Will monitor vancomycin trough levels. (2) GERD (gastroesophageal reflux disease) Status: Chronic Assessment & Plan: Continue pantoprazole 40mg daily. (3) Hypothyroidism Status: Chronic Assessment & Plan: Continue levothyroxine 88mcg daily. (4) Post-menopausal Status: Chronic Assessment & Plan: Continue Estradiol 2mg at HS. (5) PSVT (paroxysmal supraventricular tachycardia) Status: Chronic Assessment & Plan: The patient had been on diltiazem but stopped it due to migraines. Time Spent on Plan of Care: < 30 min Exam Sepsis Risk: No Definite Risk Problem Qualifiers (1) GERD (gastroesophageal reflux disease): Esophagitis presence: without esophagitis Qualified Codes: K21.9 - Gastro- esophageal reflux disease without esophagitis (2) Hypothyroidism: Hypothyroidism type: acquired Qualified Codes: E03.9 - Hypothyroidism, unspecified RACHELLE MANCINI MD April 05, 2018 09:54
[2018-04-05 12:28] VITALS: BP 136/86
[2018-04-05 14:34] VITALS: BP 134/84
[2018-04-05 19:13] VITALS: BP 138/93
[2018-04-05] MEDS: ESTRADIOL 1 MG TAB PO SCH (20:49)
[2018-04-05] MEDS: valACYclovir HCL 500 MG TAB PO SCH (20:49)
[2018-04-05] MEDS: diphenhydrAMINE 25 MG CAP PO PRN (22:56)
[2018-04-05 23:01] VITALS: BP 126/105
[2018-04-06 03:14] VITALS: BP 116/80
[2018-04-06] MEDS: AMPICILLIN/SULBACT (*) 3 GM VL 3 GM in NS(*) 0.9% 100 ML BAG 100 ML IVPB SCH ×2 (04:40→10:58)
[2018-04-06] MEDS: LEVOTHYROXINE SOD 0.088 MG TAB PO SCH (05:22)
[2018-04-06] MEDS: IBUPROFEN 600 MG TAB PO PRN (05:24)
[2018-04-06 06:01] LABS: PLATELET COUNT, AUTOMATED 283 K/uL (150-450)
--- NOTE | 2018-04-06 06:04 | OPERATIVE REPORT 1 ---
EVENT DATE: April 05, 2018 SURGEON: Monty Kennedy MD ANESTHESIA: None. PREOPERATIVE DIAGNOSIS Stage III pressure ulcer left forefoot. POSTOPERATIVE DIAGNOSIS Stage III pressure ulcer left forefoot. PROCEDURE PERFORMED Sharp debridement of a 3 cm x 2.5 cm stage III pressure ulcer DESCRIPTION OF PROCEDURE Patient was in the supine position. The area was sharply debrided with a scalpel. We gently removed as much necrotic material as we could. There was some remaining necrotic material left, but we got quite a bit of it off and felt that was adequate debridement at this point. No purulent material was noted. Sterile bandage was placed. The patient tolerated the procedure well, no apparently complication. YAAKOV
--- NOTE | 2018-04-06 07:41 | Hospitalist Progress Note ---
Subjective Progress Notes Subjective No new complaints. No fever. Physical Exam Vital Signs Date Time Temp Pulse Resp B/P (MAP) Pulse Ox O2 Delivery O2 Flow Rate FiO2 04/06/18 03:14 98.4 55 16 116/80 (92) 92 Room Air 04/05/18 03:48 1.0 General Appearance: Alert, Awake Integumentary: Other (ulcer with small amount of eschar/appears clean/minimal surrounding erythema/edema) Result Diagram: 04/06/18 0541 04/06/18 0541 Assessment and Plan Problems: (1) Cellulitis of foot Status: Acute Assessment & Plan: She failed outpatient therapy with clindamycin. MRI is negative for osteomyelitis, but does have evidence of cellulitis. Wound care as per Dr. Kennedy and PT. She is now on IV vancomycin and Unasyn. WBC is normal. Will monitor vancomycin trough levels. Consider transition to oral Avelox. (2) GERD (gastroesophageal reflux disease) Status: Chronic Assessment & Plan: Continue pantoprazole 40mg daily. (3) Hypothyroidism Status: Chronic Assessment & Plan: Continue levothyroxine 88mcg daily. (4) Post-menopausal Status: Chronic Assessment & Plan: Continue Estradiol 2mg at HS. (5) PSVT (paroxysmal supraventricular tachycardia) Status: Chronic Assessment & Plan: The patient had been on diltiazem but stopped it due to migraines. Exam Sepsis Risk: No Definite Risk Problem Qualifiers (1) GERD (gastroesophageal reflux disease): Esophagitis presence: without esophagitis Qualified Codes: K21.9 - Gastro- esophageal reflux disease without esophagitis (2) Hypothyroidism: Hypothyroidism type: acquired Qualified Codes: E03.9 - Hypothyroidism, unspecified JULIANNE MANCINI MD April 06, 2018 07:41
[2018-04-06 07:43] VITALS: BP 133/98
[2018-04-06] MEDS: VANCOMYCIN(*) 1 GM VIAL 1 GM, VANCOMYCIN (*) 0.5 GM VIAL 0.5 GM in NS(*) 0.9% 250 ML BA... IVPB SCH (07:58)
[2018-04-06] MEDS ORDERED: MOX400 PO (08:09)
[2018-04-06] MEDS: ENOXAPARIN 40 MG/0.4ML SYR SC SCH (08:10)
[2018-04-06] MEDS: PANTOPRAZOLE SOD 40 MG TABEC PO SCH (08:10)
--- NOTE | 2018-04-06 08:16 | General Surgery Progress Note ---
Subjective Progress Notes Subjective continues to feel better, slept well Physical Exam Vital Signs Date Time Temp Pulse Resp B/P (MAP) Pulse Ox O2 Delivery O2 Flow Rate FiO2 04/06/18 07:43 98.1 57 16 133/98 (110) 93 Room Air 04/05/18 03:48 1.0 General Appearance: Alert, Awake, No Acute Distress Extremities: Other (small areas of eschar that will slough on there own.) Result Diagram: 04/06/18 0541 04/06/18 0541 Assessment and Plan Problems: (1) Cellulitis of foot Status: Acute Assessment & Plan: doing well, mri no abscess or osteomyelitis. will continue iv antibiotics 04/05/18 improving continue antibiotics and wound care 04/06/18 doing well, Home today on antibiotics. outpt wound care and no weight bearing Exam Sepsis Risk: No Definite Risk MENG PEREZ MD April 06, 2018 08:16
[2018-04-06] MEDS ORDERED: OXYC-865 PO (08:17)
--- NOTE | 2018-04-06 08:19 | Hospitalist Depart ---
Discharge Summary Reason for Hosp/Final Diag: (1) Cellulitis of foot Status: Acute Hospital Course & Plan: doing well, mri no abscess or osteomyelitis. will continue iv antibiotics 04/05/18 improving continue antibiotics and wound care 04/06/18 doing well, Home today on antibiotics. outpt wound care and no weight bearing Departure Weight (Pounds): 131 Weight (Ounces): 9.0 Result Diagram: 04/06/1854004/06/18540 Condition: Improved Discharge: Home PT/OT Follow Up For: PT Evaluation and Treat Discharge Instructions Home Meds Active Scripts Oxycodone Hcl/Acetaminophen (PERCOCET 5-325 MG TABLET) 1 Each Tablet, 1 EACH PO Q4H Y for PAIN, #30 TAB Prov:MENG PEREZ MD 04/06/18 Moxifloxacin Hcl (AVELOX) 400 Mg Tab, 400 MG PO QDAY for 14 Days, #14 TAB 0 Refills Prov:JULIANNE MANCINI MD 04/06/18 Hydrocodone Bit/Acetaminophen (HYDROCODON-ACETAMINOPHEN 5-325) 1 Each Tablet, 1 EACH PO Q4-6H Y for PAIN, #12 TAB 0 Refills TAKE ONE TABLET BY MOUTH EVERY 4-6 HOURS NEEDED FOR PAIN Prov:RIGOBERTO NOLEN MD 11/25/17 Reported Medications Valacyclovir Hcl (VALACYCLOVIR) 500 Mg Tablet, 500 MG PO HS 04/03/18 Levothyroxine Sodium (LEVOTHYROXINE SODIUM) 88 Mcg Tablet, 1 TAB PO DAILY 04/03/18 Pantoprazole Sodium (PANTOPRAZOLE SODIUM) 40 Mg Tablet.dr, 1 TAB PO DAILY 04/03/18 Clindamycin Hcl (CLINDAMYCIN HCL) 300 Mg Capsule, 1 CAP PO TID 04/03/18 Estradiol (ESTRADIOL) 2 Mg Tablet, 1 TAB PO HS 04/03/18 Discontinued Reported Medications Diltiazem Hcl (DILTIAZEM 24HR CD) 120 Mg Cap.er.24h, 120 MG PO DAILY 01/30/18 Levothyroxine Sodium (LEVOTHYROXINE SODIUM) 75 Mcg Tablet, 88 MCG PO QDAY, TAB 09/11/16 Pantoprazole Sod (Protonix) 20 Mg Tabec, 20 MG PO QDAY 07/17/12 Acyclovir (Zovirax) 200 Mg Cap, 200 MG PO DAILY 07/17/12 Estradiol (Estrace) 1 Mg Tab, 2 MG PO QDAY, 0 Refills 02/07/11 Discontinued Scripts Ondansetron (ZOFRAN ODT) 4 Mg Tab.rapdis, 4 MG PO every 6 hours Y for NAUSEA/ VOMITING, #10 TAB TAKE 1 TABLET BY MOUTH EVERY 12 HOURS Prov:FLIP BURGOS DO 01/30/18 Oxycodone Hcl/Acetaminophen (PERCOCET 5-325 MG TABLET) 1 Each Tablet, 1 EACH PO Q4-6H Y for PAIN, #10 Prov:FLIP BURGOS DO 01/30/18 Diet: Regular Special Instructions: no weight bearing on left foot. may shower outpt wound care at physical therapy to see me in 2 weeks Venous Thromboembolism Antithrombotics Is Pt On Any Antithrombotics?: Yes MENG PEREZ MD April 06, 2018 08:19
== END 2018-04-06 12:25 | disposition home or self-care (01) | DRG 570 ==
LOC: MED 14:52
PROVIDERS: ADMIT Surgery; ATTEND Surgery
PROC: 0JDR3ZZ Extraction of Left Foot Subcutaneous Tissue and Fascia, Percutaneous Approach (ICD-10-PCS; 2018-04-04)
PROC: 0JBR0ZZ Excision of Left Foot Subcutaneous Tissue and Fascia, Open Approach (ICD-10-PCS; principal; 2018-04-05)
PROC: 0JDR3ZZ Extraction of Left Foot Subcutaneous Tissue and Fascia, Percutaneous Approach (ICD-10-PCS; 2018-04-06)
DX: L03.116 Cellulitis of left lower limb (principal); L89.893 Pressure ulcer of other site, stage 3; K21.9 Gastro-esophageal reflux disease without esophagitis; D50.9 Iron deficiency anemia, unspecified; E03.9 Hypothyroidism, unspecified; J30.9 Allergic rhinitis, unspecified; Z90.710 Acquired absence of both cervix and uterus; Z78.0 Asymptomatic menopausal state
CPT/HCPCS: 11042; 36415; 73720; 80202; 82040; 82247; 82310; 82374; 82435; 82565; 82947; 83540; 83550; 84075; 84132; 84155; 84295; 84450; 84460; 84520; 85025; 86140; 97161; A9577; J0295; J1650; J3370; J7040; J7050; Q0163

== ENCOUNTER 2018-06-08 11:15 | Outpatient (RCR) | payer BC ==
--- NOTE | 2018-03-28 08:16 | PT INITIAL EVALUATION ---
MEDICAL DIAGNOSIS: Ulcer of L) foot TREATMENT DIAGNOSIS: Friction ulcer and DTI of the L) plantar foot, across the MTP joints DATE OF ONSET: 03/23/18 SUBJECTIVE: The patient presents today with complaints of new areas of breakdown on the L) plantar foot. She was discharged from OP PT wound care on . Since that time, the patient reports that she has started running again , which she hasn't done for "quite a while". The patient ran 7 miles on Friday and also participate in step aerobics prior to that. She reports that she started experiencing "burning" across the bottom of the L) foot and pain in the L) great toe. She reports that she has been covering the open areas during work. 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 The base of the wound demonstrates healthy, pink dermis, but with surrounding purple discoloration indicating DTI. The great toe of the L) foot also demonstrates slight purple discoloration and increased tenderness with palpation, this is likely d/t trauma. Previous wound on the R) plantar great toe demonstrates a dried eschar. For the wound on the L) plantar foot, PT completed conservative, selective debridement of non-viable tissue and calloused tissue with tweezers and scissors to the depth of the dermis to reveal entirety of wound base. The wound was treated with collagen and then covered with a silicone bordered dressing. The R) great toe was treated with vaseline to soften and then covered with a simple bandaid. PT discussed with the patient that the wounds were likely caused by a dramatic increase in high impact activity, as well as improper foot wear likely causing increased friction and trauma to the L) foot. The patient is agreeable to consult from [facility] in order to discuss footwear option. Activity modification was also discussed, and the patient verbalized understanding. The patient will benefit from skilled PT wound care to include sharps debridement as well as advanced wound care product selection and application to facilitate moist wound healing. Short Term Goals 1: Pt to maintain clean, dry and intact dressing between wound care visits. 2: Wounds to gradually epithelialize from edges inward and demonstrate signs of decreased pressure. 3: Wounds to demonstrate 100% closure 4: Pt to f/u with orthotic specialist in order to obtain appropriate footwear for a variety of activities 5: Pt to receive education regarding activity modifications necessary to prevent future break down Patient's Goals Wound healing and prevention of further break down PLAN: Patient to be seen for skilled PT wound care to include sharps debridement as well as advanced wound care product selection and application to facilitate moist wound healing 1x/Week for up to 90 days Thank you for this referral. If you have any questions, comments, or concerns about this report or plan, please contact me at . Kenyatta Hernandez, PT, DPT PATOD
[~2018-06-08 11:15] MED LIST changes: +CLIN300C99 PO; +ESTR2TAB26 PO; -FERR220S15 PO; +FERR220S5 PO; +GADOBENATE 529MG/1ML 15ML VIAL IVP ONE; +LEVO88TA45 PO; +MOX400 PO; +PANT40TA65 PO; +VALA500T63 PO
--- NOTE | 2018-06-08 13:48 | PT PLAN OF CARE ---
Physician: Dr. Brown Patient is being seen: Esperanza Patton Therapist: Mima Burch, PT , MPT Medical Diagnosis: Ulcer of L) foot Treatment Diagnosis: Friction ulcer and DTI of the L) plantar foot, across the MTP joints Date of Onset: 03/23/18 Date of Initial Evaluation: 03/27/18 Date patient was last seen: 06/08/18 Number of treatments: 15 Number of cancellations/No shows: 0 INTERVENTIONS: Skilled PT wound care to include sharps debridement as well as advanced wound care product selection and application to facilitate moist wound healing. GOALS: 1: Pt to maintain clean, dry and intact dressing between wound care visits. - Pt changes dressing more frequently than PT instructed. 2: Wounds to gradually epithelialize from edges inward and demonstrate signs of decreased pressure. - Progressing 3: Wounds to demonstrate 100% closure - Progressing 4: Pt to f/u with orthotic specialist in order to obtain appropriate footwear for a variety of activities- Partially met *Pt did obtain a custom made insole with a metatarsal pad for off loading and to assist with healing. Pt encouraged to purchase diabetic depth shoes to accommodate this extra thickness, however, pt has not done this yet, and states that the insoles do not feel comfortable (after running 3 miles in them with regular shoes). Pt was instructed that these insoles are to assist in healing and transferring pressure, not for increased activity and heating and ventilating drafter referred pt to a associate brand manager in [place] who specializes in highly active individuals. 5: Pt to receive education regarding activity modifications necessary to prevent future break down- Met; however, pt is non-compliant with non-weight bearing as instructed by surgeon and in fact continues to run and bike, although to a somewhat lesser extent than before, per pt report. PATIENT'S GOAL: Wound healing and prevention of further break down Status of Patient's Goals: Progressing gradually; Current wound at L) plantar surface of MTP joints measures: 0.9cm L x 0.6cm W x 0.1cm D at medial side and 1.2cm L x 0.7cm W x 0.1cm D at lateral side. Patient Compliance: Fair- Prognosis: Good Reasons for continuing therapy: None at this time; pt requests to be discharged from wound care in [place], as she is moving to [place] with her job and will seek further wound care services once there. Pt was provided with information for wound care clinic 2 weeks ago, but has not yet made an appointment for follow up care. Pt has requested that this PT send referral information to her PCP, for a prescription to be sent to the [place] wound care clinic. Thank you for this referral. If you have any questions, comments, or concerns about this report or plan, please contact me at . h. Lucero Burch, PT, [facility]
== END 2018-06-08 18:00 | disposition home or self-care (01) ==
LOC: PT 11:15
PROVIDERS: ATTEND Family Medicine
DX: S91.302A Unspecified open wound, left foot, initial encounter (principal); Q68.1 Congenital deformity of finger(s) and hand; Q66.9 Congenital deformity of feet, unspecified; X58.XXXA Exposure to other specified factors, initial encounter
CPT/HCPCS: 97161; 97164; 97597; A9577

== ENCOUNTER 2018-06-10 10:42 | Outpatient (RCR) | payer BC ==
[2018-04-04 12:26] VITALS: BMI 20.5
[~2018-06-10 10:42] MED LIST changes: -GADOBENATE 529MG/1ML 15ML VIAL IVP ONE
[2018-06-10 10:56] VITALS: BP 114/82
[2018-06-10 10:58] LABS: PLATELET COUNT, AUTOMATED 270 K/uL (150-450)
== END 2018-06-30 11:14 | disposition home or self-care (01) ==
LOC: SPU 10:42
PROVIDERS: ATTEND Internal Medicine Medical Oncology
DX: D50.9 Iron deficiency anemia, unspecified (principal)
CPT/HCPCS: 36415; 82728; 83540; 83550; 85025

== ENCOUNTER 2019-01-19 00:17 | Inpatient (IN) | payer BC ==
[2019-01-18 13:42] LABS: INR 1.03
[~2019-01-19] VITALS: Ht 168.9 cm; Wt 54.7 kg
[2019-01-19] VITALS (15 sets, daily range): BP systolic 95–120; BP diastolic 59–79
[~2019-01-19 00:17] MED LIST changes: +CELE-1 PO; +DILT120C12 PO; -DILT120C18 PO; -FERR220S5 PO; +FERR220S6 PO; -MULT-1097 PO; +MULT-1540 PO
[2019-01-19] MEDS: FAMOTIDINE 20 MG TAB PO ONE ×2 (06:40→07:09)
[2019-01-19] MEDS ORDERED: VANCOMYCIN 1 GM ADDVIAL 1 GM in NS(*) 0.9% 250 ML ADDVAN BAG 250 ML IVPB ONE (07:30)
[2019-01-19] MEDS ORDERED: fentaNYL CITR 250 MCG/5 ML AMP ONE (07:52)
[2019-01-19] MEDS ORDERED: ONDANSETRON 4 MG/2 ML VIAL ONE (07:53)
[2019-01-19] MEDS ORDERED: PROPOFOL EMUL(*) 10MG/ML 20 ML 20 ML ONE (07:53)
[2019-01-19] MEDS ORDERED: LIDOCAINE MPF 1% 5 ML VIAL ONE (07:53)
[2019-01-19] MEDS ORDERED: DEXAMETHASONE SOD PHOS 10MG/ML ONE (07:53)
[2019-01-19] MEDS ORDERED: ROPIVACAINE 0.5% 20 ML VIAL ONE (07:54)
[2019-01-19] MEDS ORDERED: EPINEPHrine HCL 1 MG/ML AMP ONE (07:58)
[2019-01-19] MEDS ORDERED: NS 0.9% 20 ML SDV 20 ML ONE (07:58)
[2019-01-19] MEDS ORDERED: KETAMINE HCL 200 MG/20 ML MDV ONE ×2 (07:59→09:11)
[2019-01-19] MEDS ORDERED: HALOPERIDOL LACT 5 MG/ML VIAL IM ONE (08:02)
[2019-01-19] MEDS ORDERED: ePHEDrine 25 MG/5 ML DISP.SYR IVP ONE (08:41)
[2019-01-19] MEDS ORDERED: HYDROmorphone HCL 2 MG/ML SDV ONE (08:46)
[2019-01-19] MEDS ORDERED: LACTATED RINGER 3000 ML BAG IR ONE (09:16)
[2019-01-19] MEDS ORDERED: NS 0.9% IRRIGATION 1000ML PLCT IR ONE (09:17)
[2019-01-19] MEDS ORDERED: WATER STERILE FOR IRRIG 1000ML IR ONE (09:19)
[2019-01-19] MEDS ORDERED: fentaNYL CITR 100 MCG/2 ML AMP ONE ×2 (10:38→10:57)
--- NOTE | 2019-01-19 10:51 | OPERATIVE REPORT 1 ---
EVENT DATE: January 19, 2019 SURGEON: Espinoza Mooney MD ANESTHESIOLOGIST: Jeffery Epstein MD ANESTHESIA: General plus block. REGULATORY AFFAIRS INTERN: Smith Richards PA-C PREOPERATIVE DIAGNOSIS Right knee osteoarthritis. POSTOPERATIVE DIAGNOSIS Right knee osteoarthritis. PROCEDURE PERFORMED Right total knee arthroplasty. FINDINGS The patient has a significant amount of arthritic changes associated with patellofemoral joint and into the medial compartment and was amenable for total knee replacement. ESTIMATED BLOOD LOSS 250 mL. DRAINS None. COMPLICATIONS None. TOURNIQUET TIME 15 minutes, just up during instrumentation phase. IMPLANTS USED DePuy Attune size 6 narrow femur with a 6 x 5 rotating platform poly insert, a 5 tibia and a 35 anatomic patella. SPECIMENS None. INDICATIONS AND HISTORY This patient is a 58-year-old female who presented to my clinic for evaluation of right knee pain and irritation going on for some time. She continued to have pain and problems despite all conservative management. We even did a knee arthroscopy and she still continued to have problems and issues associated with the knee so, therefore, we talked about the implications of a total knee arthroplasty. We talked about how she is young and the infection risks secondarily due to prior septic emboli and wound healing issues and she still wanted to go ahead with the total knee arthroplasty today, January 19, 2019. The risks and benefits were discussed with the patient and informed consent was obtained at the last clinic visit. DESCRIPTION OF PROCEDURE The patient was brought into the operating room. She and the procedure were both verified. She was placed supine on the operating table and induced intubated by anesthesia. She was then given a block in the leg by anesthesia and then was intubated and the left leg was prepped and draped in the usual fashion and a time-out was observed, verifying the correct patient and procedure. The standard incision was made over the anterior aspect of the knee, taken through the skin and subcutaneous tissue. There was a decent amount of bleeding right off the bat but once we cauterized it we got the bleeding under control and were able to go through a medial parapatellar approach. Once through the medial parapatellar approach, I was able to then jimmy the patella and then flex the knee up and remove the ACL and PCL without any major difficulty. This then was followed by placement of an intramedullary drill down the central portion of the femur and then I was able to put an intramedullary guide down in accordance with the Attune System. This was then followed by cutting the distal femur with 9 mm off the distal femur and then followed by the sizing block, which sized to a 6 block so, therefore, we then put in the four-in-one cutting block, cut all four cuts and then put in the notch cutting block, which we cut without any difficulty. Once I was done with the femur, I then cut off a little bit of the posterior osteophytes using curved osteotome and also released a little bit of the posterior capsule. I then turned attention to the tibia, where I subluxed it with a single-prong and double-prong retractor. I then removed the rest of the menisci on the anterior and posterior aspects of the medial and lateral sides. This was then followed by drilling intramedullary again with the drill and then putting in an intramedullary guide again and then cutting the proximal tibia with a 2 mm cut in accordance with the tibial guide of the Attune System. We made sure that we had good alignment associated with alignment jori during this time also. This was then followed by sizing of the proximal tibia to a 5. We removed the rest of the posterior tissue of the ACL and PCL through this area and a little bit of the posterior meniscus on this side also. I then sized the tibia to the 5, drilled the tibial plate in and drilled and put in the final cut to the tibia without any major difficulty. I then put in a trial 5 poly. This seemed to work very well. She was then able to get up to full extension. We had no signs of problems with anterior, posterior drawer type test or any shifts of the varus or valgus stress. I then everted the patella and then cut 9 mm off the patella as it measured to 24. I then sized the patella to a 35, drilled the holes and then put in the trial patella without any difficulty. I then Esmarched the leg and put up the tourniquet and then cemented the components in place without any difficulty, removing all excess cement and letting it harden in full extension. I then removed all of the instrumentation. Through range of motion, the patella tracked very well so then we irrigated again with copious amount of saline. We closed the medial parapatellar approach with a 2-0 Quill. This was then followed by 2- 0 Vicryl in the subcutaneous tissue and a 2-0 Quill in the subcutaneous tissue and 4-0 Monocryl in the skin and then bio-occlusive dressing was applied. The patient was then awakened, extubated and transferred to PACU in stable condition. YAAKOV
[2019-01-19] MEDS ORDERED: CELECOXIB 200 MG CAP PO ONE (11:00)
[2019-01-19] MEDS ORDERED: BACITRACIN 50000 UNIT/VIAL 100,000 UNIT in NS 0.9% 3000 ML IRRIGATION BAG 3,000 ML IR ONE (11:00)
[2019-01-19] MEDS ORDERED: PREGABALIN 150 MG CAPSULE PO ONE (11:00)
[2019-01-19] MEDS ORDERED: NORMOSOL R SOLN(*) 1000 ML BAG 1,000 ML IV PRN (11:00)
[2019-01-19] MEDS ORDERED: ACETAMINOPHEN 500 MG TAB PO ONE (11:00)
[2019-01-19] MEDS ORDERED: LIDOCAINE/SOD BICARB 8.4% SYR ID ONE (11:00)
[2019-01-19] MEDS ORDERED: TRANEXAMIC AC 1000 MG/10ML SDV 1,000 MG in DEXTROSE 5% 50 ML BAG 50 ML IV ONE (11:00)
[2019-01-19] MEDS ORDERED: ROPIVACAINE/EPI/CLONIDINE/KET 50 ML SYRINGE INJ ONE (11:00)
[2019-01-19] MEDS ORDERED: MIDAZOLAM 2 MG/2 ML VIAL IVP PRN (11:00)
--- NOTE | 2019-01-19 11:12 | RADIOLOGY IMAGING REPORT ---
[place] [facility] [place] NAME: Esperanza Patton : 1960 MR: [id number] V: [id number] EXAM DATE: ORDERING PHYSICIAN: MATY RODRÍGUEZ TECHNOLOG[place] [facility] [place] Esperanza [place] : 1960 Visit/Account:[id number] Date of Sevice: 01/19/2019 KNEE LIMITED RIGHT Indication: Postop right total knee Comparison: None available Findings: There are post interval changes from total knee replacement. Three part TKA appears appropriately al igned, no abnormal lucencies are noted. IMPRESSION: 1. Normal postoperative appearance of right TKA Report Dictated By: Enoch Kessler at 01/19/2019 11:02 AM Report E-Signed By: Enoch Kessler at 01/19/2019 11:09 AM WSN:[email or web address]
[2019-01-19] MEDS ORDERED: MAGNESIUM CITRATE 300 ML BTL PO PRN (12:05)
[2019-01-19] MEDS ORDERED: MAGNESIUM HYDROXIDE* 30ML UDCP PO PRN (12:05)
[2019-01-19] MEDS ORDERED: FLUSH 10 ML SYR IVP PRN (12:05)
[2019-01-19] MEDS ORDERED: diphenhydrAMINE 50 MG/ML VIAL IVP PRN (12:05)
[2019-01-19] MEDS ORDERED: ONDANSETRON 4 MG/2 ML VIAL IVP PRN (12:05)
[2019-01-19] MEDS ORDERED: PROMETHAZINE 25 MG/ML 1 ML AMP IVP PRN (12:05)
[2019-01-19] MEDS ORDERED: BISACODYL 10 MG SUPP PR PRN (12:05)
[2019-01-19] MEDS ORDERED: LR 1000 ML BAG 1000 ML IV PRN (12:05)
[2019-01-19] MEDS: HYDROmorphone HCL 2 MG/ML SDV IVP PRN (13:35)
[2019-01-19] MEDS ORDERED: TOPI-23 PO (14:01)
[2019-01-19] MEDS ORDERED: BUPR-124 PO (14:01)
--- NOTE | 2019-01-19 14:25 | Hospitalist Consultation ---
History of Present Illness Requesting Physician Dr. Mooney Reason for Consult Medical Management Chief Complaint s/p right knee replacement History of Present Illness She was admitted s/p right knee replacement. It is reported the surgery went well and without complication. History Problems: (1) Depression Status: Chronic (2) Hypothyroidism Status: Chronic (3) Migraine headache Status: Chronic (4) GERD (gastroesophageal reflux disease) Status: Chronic (5) Iron deficiency anemia Status: Chronic Home Meds Reported Medications Topiramate (TOPIRAMATE) 25 Mg Tablet, 1 TAB PO QHS 01/19/19 Bupropion Hcl (BUPROPION XL) 150 Mg Tab.er.24h, 1 TAB PO QAM 01/19/19 Celecoxib (CELEBREX) 200 Mg Capsule, 200 MG PO QDAY, CAPSULE 01/12/19 Levothyroxine Sodium (LEVOTHYROXINE SODIUM) 88 Mcg Tablet, 1 TAB PO DAILY 04/03/18 Pantoprazole Sodium (PANTOPRAZOLE SODIUM) 40 Mg Tablet.dr, 1 TAB PO DAILY 04/03/18 Estradiol (ESTRADIOL) 2 Mg Tablet, 1 TAB PO HS 04/03/18 Discontinued Reported Medications Valacyclovir Hcl (VALACYCLOVIR) 500 Mg Tablet, 500 MG PO HS 04/03/18 Discontinued Scripts Oxycodone Hcl/Acetaminophen (PERCOCET 5-325 MG TABLET) 1 Each Tablet, 1 EACH PO Q4H PRN for PAIN, #30 TAB Prov:MENG PEREZ MD 04/06/18 Moxifloxacin Hcl (AVELOX) 400 Mg Tab, 400 MG PO QDAY for 14 Days, #14 TAB 0 Refills Prov:JULIANNE MANCINI MD 04/06/18 Hydrocodone Bit/Acetaminophen (HYDROCODON-ACETAMINOPHEN 5-325) 1 Each Tablet, 1 EACH PO Q4-6H PRN for PAIN, #12 TAB 0 Refills TAKE ONE TABLET BY MOUTH EVERY 4-6 HOURS NEEDED FOR PAIN Prov:RIGOBERTO NOLEN MD 11/25/17 Allergies: Coded Allergies: No Known Allergies (Unverified Allergy, Mild, 01/30/18) Patient History: FH: breast cancer MOTHER, Onset:58 FH: colon cancer Grand mother FH: diabetes mellitus Grand mother FH: prostate cancer FATHER FH: rheumatic fever FATHER Grand mother Grandfatehr Hx Smoking: No Smoking Status: Never Smoker Exposure to Second Hand Smoke?: No Caffeine Intake: Coffee, Soda Caffeine/Cups Per Day: 1 C COFFEE/ 1 DIET SODA DAILY Hx Alcohol Use: Yes (OCC) Hx Substance Use Disorder: No Social Drug Use: Never History of IV Drug Use: No Review of Systems All Systems Reviewed/Normal: Yes, Except as Noted Exam Vital Signs Vital Signs Date Time Temp Pulse Resp B/P (MAP) Pulse Ox O2 Delivery O2 Flow Rate FiO2 01/19/19 12:46 92 Nasal Cannula 1.0 01/19/19 11:43 97.9 65 16 104/64 (77) General Appearance: Alert, Awake, No Acute Distress, Afebrile Neuro: No Gross deficits Cardiovascular: Regular Rate and Rhythm Respiratory: No Respiratory Distress, Clear to Auscultation Psych: Alert & Oriented X3, Appropriate Mood & Affect Assessment and Plan Problems: (1) Status post right knee replacement Status: Acute Assessment & Plan: Followed by Dr. Mooney. She will be placed on Aspirin for DVT prophylaxis. (2) Hypothyroidism Status: Chronic Assessment & Plan: She is on chronic treatment with Levothyroxine. (3) Depression Status: Chronic Assessment & Plan: She is on chronic treatment with Wellbutrin. (4) Migraine headache Status: Chronic Assessment & Plan: She is on chronic treatment with Topamax. (5) GERD (gastroesophageal reflux disease) Status: Chronic Assessment & Plan: She is on chronic treatment with Protonix. (6) Iron deficiency anemia Status: Chronic Venous Thromboembolism Antithrombotics Is Pt On Any Antithrombotics?: No Exam Sepsis Risk: No Definite Risk ANAHI ROSEP Jan 19, 2019 14:25
--- NOTE | 2019-01-19 14:39 | NUR ---
Physical Therapy Impression PT eval complete. Pt reporting pain at rest. SBA for bed mobility. CGA to stand at EOB and side step to HOB with RW. CPM fit and placed running at end of session 0-35* and pt instructed in flexion self progression. Anticipate d/c with OP PT Physical Therapy Goals 1: Pt to complete bed mobility with SBA 2: Pt to complete transfers with SBA and RW 3: Pt to ambulate 150' with SBA and RW 4: Pt to asc/desc 2x4 stairs with SBA and railing 5: Pt to be I) with CPM Patient's Goals
[2019-01-19] MEDS: TOPIRAMATE 25 MG TAB PO SCH (21:37)
[2019-01-19] MEDS: VANCOMYCIN 1 GM ADDVIAL 1 GM in NS(*) 0.9% 250 ML ADDVAN BAG 250 ML IVPB SCH (21:37)
[2019-01-19] MEDS: ASPIRIN 325 MG TAB PO SCH (21:37)
[2019-01-20 02:40] VITALS: BP 102/61
[2019-01-20] MEDS: LEVOTHYROXINE SOD 0.088 MG TAB PO SCH (06:01)
[2019-01-20] MEDS: diphenhydrAMINE 25 MG CAP PO PRN ×2 (06:08→14:22)
[2019-01-20 06:48] VITALS: BP 118/73
[2019-01-20] MEDS: HYDROmorphone HCL 2 MG/ML SDV IVP PRN ×7 (06:54→22:27)
[2019-01-20] MEDS: PANTOPRAZOLE SOD 40 MG TABEC PO SCH (09:19)
[2019-01-20] MEDS: buPROPion XL 150 MG TABCR PO SCH (09:19)
[2019-01-20] MEDS: VANCOMYCIN 1 GM ADDVIAL 1 GM in NS(*) 0.9% 250 ML ADDVAN BAG 250 ML IVPB SCH (09:19)
[2019-01-20 10:11] VITALS: Ht 168.9 cm; Wt 54.7 kg
--- NOTE | 2019-01-20 10:38 | Hospitalist Progress Note ---
Subjective Progress Notes Subjective She was admitted after knee replacement. She has not been eating well during admission. Patient Complains of: Cardiovascular: No: Chest Pain Respiratory: No: Shortness of Breath Physical Exam Vital Signs Date Time Temp Pulse Resp B/P (MAP) Pulse Ox O2 Delivery O2 Flow Rate FiO2 01/20/19 07:27 85 01/20/19 07:22 Nasal Cannula 1.0 01/20/19 06:48 98.7 87 22 118/73 (88) Intake and Output 01/20/19 07:00 Intake Total 2990 ml Output Total 1250 ml Balance 1740 ml Intake Oral 990 ml IV Total 2000 ml Output Urine Total 1250 ml # Voids 3 General Appearance: Alert, Awake, No Acute Distress, Afebrile Neuro: No Gross deficits Cardiovascular: Regular Rate and Rhythm Respiratory: No Respiratory Distress, Clear to Auscultation GI: Soft and Non-Tender Psych: Alert & Oriented X3, Appropriate Mood & Affect Result Diagram: 01/20/19 0559 Assessment and Plan Problems: (1) Status post right knee replacement Status: Acute Assessment & Plan: Followed by Dr. Mooney. She will be placed on Aspirin for DVT prophylaxis. Encouraged protein intake for wound healing. (2) Hypothyroidism Status: Chronic Assessment & Plan: She is on chronic treatment with Levothyroxine. (3) Depression Status: Chronic Assessment & Plan: She is on chronic treatment with Wellbutrin. (4) Migraine headache Status: Chronic Assessment & Plan: She is on chronic treatment with Topamax. (5) GERD (gastroesophageal reflux disease) Status: Chronic Assessment & Plan: She is on chronic treatment with Protonix. (6) Iron deficiency anemia Status: Chronic Exam Sepsis Risk: No Definite Risk ANAHI ROSEP Jan 20, 2019 10:38
--- NOTE | 2019-01-20 11:35 | NUR ---
Physical Therapy Impression Pt seen twice this AM. Initially Pt only able to sit at EOB then had to return to supine due to nausea and dizziness. During second AM visit, Pt able to tolerate 5' of ambulation with RW and CGA prior to needing to return to bed due to nausea and dizziness. Physical Therapy Goals 1: Pt to complete bed mobility with SBA 2: Pt to complete transfers with SBA and RW 3: Pt to ambulate 150' with SBA and RW 4: Pt to asc/desc 2x4 stairs with SBA and railing 5: Pt to be I) with CPM Patient's Goals
[2019-01-20 12:12] VITALS: BP 101/71
[2019-01-20 15:37] VITALS: BP 111/68
--- NOTE | 2019-01-20 15:52 | NUR ---
Physical Therapy Impression Pt's progress with functional mobility limited to severe pain, 8/10 rated. Pt requires Min A for bed mobility, CGA to stand from the bed, and CGA to ambulate 20' with RW. Recommend OP PT at DC. Physical Therapy Goals 1: Pt to complete bed mobility with SBA 2: Pt to complete transfers with SBA and RW 3: Pt to ambulate 150' with SBA and RW 4: Pt to asc/desc 2x4 stairs with SBA and railing 5: Pt to be I) with CPM Patient's Goals
[2019-01-20 18:29] VITALS: BP 104/63
[2019-01-20] MEDS ORDERED: VANCOMYCIN 1 GM ADDVIAL 1 GM in NS(*) 0.9% 250 ML ADDVAN BAG 250 ML IVPB ONE (19:15)
[2019-01-20] MEDS ORDERED: VANCOMYCIN 1 GM VIAL IV ONE (20:00)
[2019-01-20] MEDS: TOPIRAMATE 25 MG TAB PO SCH (20:18)
[2019-01-20] MEDS: ASPIRIN 325 MG TAB PO SCH (20:18)
[2019-01-20] MEDS: ZOLPIDEM TARTRATE 5 MG TAB PO PRN (22:27)
[2019-01-21 02:21] VITALS: BP 121/67
[2019-01-21] MEDS: HYDROmorphone HCL 2 MG/ML SDV IVP PRN ×4 (02:24→20:33)
[2019-01-21] MEDS: LEVOTHYROXINE SOD 0.088 MG TAB PO SCH (05:29)
[2019-01-21 07:42] VITALS: BP 95/60
[2019-01-21] MEDS ORDERED: LIDOCAINE/SOD BICARB 8.4% SYR ID ONE (08:30)
--- NOTE | 2019-01-21 08:43 | NUR ---
Physical Therapy Impression Pt continues to report high levels of pain, but reports that she would like to still d/c home today. PT emphasized importance of weightbearing through surgical limb during ambulation- pt with fair overall tolerance, but only able to ambulate 40' this AM. Reporting high pain as limiting factor. Pt does have 4 stairs to enter home, pt reports that her SO can "carry"her into the home. PT educated the patient on the importance of learning stair negotiation as a middle or intermediate school principal solution, pt agreeable to stair training later in the AM. PT returned after 9:30 meds, pt in tears d/t pn!, pt agrees that it is likely not safe nor reasonable to d/c home at this time. PT will plan for PM therapy session. Physical Therapy Goals 1: Pt to complete bed mobility with SBA 2: Pt to complete transfers with SBA and RW 3: Pt to ambulate 150' with SBA and RW 4: Pt to asc/desc 2x4 stairs with SBA and railing 5: Pt to be I) with CPM Patient's Goals
[2019-01-21] MEDS: buPROPion XL 150 MG TABCR PO SCH (09:28)
[2019-01-21] MEDS: PANTOPRAZOLE SOD 40 MG TABEC PO SCH (09:28)
[2019-01-21] MEDS ORDERED: ASPI-757 PO (10:08)
--- NOTE | 2019-01-21 11:32 | Hospitalist Progress Note ---
Subjective Progress Notes Subjective She has no complaints this morning. She had no acute events overnight. Patient Complains of: Cardiovascular: No: Chest Pain Respiratory: No: Shortness of Breath Physical Exam Vital Signs Date Time Temp Pulse Resp B/P (MAP) Pulse Ox O2 Delivery O2 Flow Rate FiO2 01/21/19 09:38 97 Room Air 01/21/19 07:42 98.0 58 16 95/60 (72) 01/20/19 22:48 2.0 Intake and Output 01/21/19 07:00 Intake Total 1140 ml Balance 1140 ml Intake Oral 890 ml IV Total 250 ml # Voids 6 General Appearance: Alert, Awake, No Acute Distress, Afebrile Neuro: No Gross deficits Cardiovascular: Regular Rate and Rhythm Respiratory: No Respiratory Distress, Clear to Auscultation GI: Soft and Non-Tender Psych: Alert & Oriented X3, Appropriate Mood & Affect Result Diagram: 01/21/19 0548 Assessment and Plan Problems: (1) Status post right knee replacement Status: Acute Assessment & Plan: Followed by Dr. Mooney. She will be placed on Aspirin for DVT prophylaxis. Encouraged protein intake for wound healing. Advised patient to stop Estradiol for two weeks to prevent blood clot. She verbalized understanding. (2) Hypothyroidism Status: Chronic Assessment & Plan: She is on chronic treatment with Levothyroxine. (3) Depression Status: Chronic Assessment & Plan: She is on chronic treatment with Wellbutrin. (4) Migraine headache Status: Chronic Assessment & Plan: She is on chronic treatment with Topamax. (5) GERD (gastroesophageal reflux disease) Status: Chronic Assessment & Plan: She is on chronic treatment with Protonix. (6) Iron deficiency anemia Status: Chronic Exam Sepsis Risk: No Definite Risk ANAHI ROSEP Jan 21, 2019 11:32
[2019-01-21] MEDS: diphenhydrAMINE 25 MG CAP PO PRN ×2 (12:13→20:34)
[2019-01-21 15:03] VITALS: BP 109/73
--- NOTE | 2019-01-21 15:08 | NUR ---
Physical Therapy Impression Pt with improved pain control this PM. Pt is Farzad for bed mobility and transfers with RW. PT instruction and demonstration for asc/desc 4 stairs with L) railing. Pt with good re-demonstration, completing stairs with SBA and increased difficulty with descent but overall improved tolerance. Pt has ambulated minimal distance and may benefit from PT visit in AM prior to d/c if appropriate. Physical Therapy Goals 1: Pt to complete bed mobility with SBA 2: Pt to complete transfers with SBA and RW 3: Pt to ambulate 150' with SBA and RW 4: Pt to asc/desc 2x4 stairs with SBA and railing 5: Pt to be I) with CPM Patient's Goals
[2019-01-21 18:38] VITALS: BP 104/68
[2019-01-21] MEDS: ASPIRIN 325 MG TAB PO SCH (20:34)
[2019-01-21] MEDS: TOPIRAMATE 25 MG TAB PO SCH (20:34)
[2019-01-21] MEDS: ZOLPIDEM TARTRATE 5 MG TAB PO PRN (20:34)
[2019-01-21 23:18] VITALS: BP 130/80
[2019-01-22 03:39] VITALS: BP 113/76
[2019-01-22 06:47] VITALS: BP 95/62
[2019-01-22] MEDS: LEVOTHYROXINE SOD 0.088 MG TAB PO SCH (07:04)
[2019-01-22] MEDS ORDERED: OXYC-865 PO (08:36)
[2019-01-22] MEDS: buPROPion XL 150 MG TABCR PO SCH (09:12)
[2019-01-22] MEDS: PANTOPRAZOLE SOD 40 MG TABEC PO SCH (09:12)
--- NOTE | 2019-01-22 10:21 | Hospitalist Progress Note ---
Subjective Progress Notes Subjective She was admitted after knee replacement. She has complaints of nausea this morning. Patient Complains of: Cardiovascular: No: Chest Pain Respiratory: No: Shortness of Breath Gastrointestinal: Nausea Physical Exam Vital Signs Date Time Temp Pulse Resp B/P (MAP) Pulse Ox O2 Delivery O2 Flow Rate FiO2 01/22/19 07:05 93 Room Air 01/22/19 06:47 98.7 68 18 95/62 (73) 01/20/19 22:48 2.0 Intake and Output 01/22/19 00:00 Intake Total 2070 ml Balance 2070 ml Intake Oral 2070 ml # Voids 5 General Appearance: Alert, Awake, No Acute Distress, Afebrile Neuro: No Gross deficits Cardiovascular: Regular Rate and Rhythm Respiratory: No Respiratory Distress, Clear to Auscultation GI: Soft and Non-Tender Psych: Alert & Oriented X3, Appropriate Mood & Affect Result Diagram: 01/22/19 0521 Assessment and Plan Problems: (1) Status post right knee replacement Status: Acute Assessment & Plan: Followed by Dr. Mooney. She will be placed on Aspirin for DVT prophylaxis. Encouraged protein intake for wound healing. Advised patient to stop Estradiol for two weeks to prevent blood clot. She verbalized u nderstanding. (2) Hypothyroidism Status: Chronic Assessment & Plan: She is on chronic treatment with Levothyroxine. (3) Depression Status: Chronic Assessment & Plan: She is on chronic treatment with Wellbutrin. (4) Migraine headache Status: Chronic Assessment & Plan: She is on chronic treatment with Topamax. (5) GERD (gastroesophageal reflux disease) Status: Chronic Assessment & Plan: She is on chronic treatment with Protonix. (6) Iron deficiency anemia Status: Chronic Exam Sepsis Risk: No Definite Risk ANAHI ROSE [employer]UL[employer] DEVELOPER Jan 22, 2019 10:21
--- NOTE | 2019-01-22 10:44 | NUR ---
Physical Therapy Impression Pt reports no concerns at this time and states she understands how to use the CPM. Pt safe for DC when medically appropriate. Physical Therapy Goals 1: Pt to complete bed mobility with SBA 2: Pt to complete transfers with SBA and RW 3: Pt to ambulate 150' with SBA and RW 4: Pt to asc/desc 2x4 stairs with SBA and railing 5: Pt to be I) with CPM Patient's Goals
[2019-01-22 12:13] VITALS: BP 111/78
--- NOTE | 2019-01-22 13:07 | RADIOLOGY IMAGING REPORT ---
FACILITY: [facility] PATIENT NAME: Esperanza Patton : 1960 MR: [id number] V: [id number] EXAM DATE: ORDERING PHYSICIAN: ANAHI ROSE TECHNOLOGIST: Location: Patient: Esperanza Patton : 1960 Visit/Account:[id number] Date of Sevice: 01/22/2019 US VENOUS LOWER EXT RT HISTORY: leg swelling after knee replacement COMPARISON: None. FINDINGS: Duplex sonographic images with segmental compressibility and evaluation of respiratory phasicity reve als no evidence of DVT. No drainable fluid collection. IMPRESSION: No sonographic evidence of DVT Report Dictated By: Timur Chand MD at 01/22/2019 1:02 PM Report E-Signed By: Timur Chand MD at 01/22/2019 1:03 PM WSN:[email or web address]
== END 2019-01-22 13:32 | disposition home or self-care (01) | DRG 554 ==
LOC: OR 00:17 → MED 11:40 → OBSVTOIN 11:40
PROVIDERS: ADMIT Orthopaedic Surgery; ATTEND Orthopaedic Surgery
DX: M17.11 Unilateral primary osteoarthritis, right knee (principal); K21.9 Gastro-esophageal reflux disease without esophagitis; F32.9 Major depressive disorder, single episode, unspecified; E03.9 Hypothyroidism, unspecified; G43.909 Migraine, unspecified, not intractable, without status migrainosus; D50.9 Iron deficiency anemia, unspecified
CPT/HCPCS: 36415; 76942; 85014; 85018; 85610; 86850; 86900; 86901; 97161; C1713; C1776; J0171; J1100; J1170; J1630; J2001; J2250; J2405; J2550; J2704; J2795; J3010; J3370; J3490; J7050; J7060; Q0163

== ENCOUNTER 2019-03-16 00:47 | Day surgery (SDC) | payer BC ==
[2019-01-20 10:11] VITALS: Ht 168.9 cm; Wt 54.9 kg
[~2019-03-16] VITALS: Ht 168.9 cm; Wt 54.9 kg
[~2019-03-16 00:47] MED LIST changes: +ASPI-757 PO; +BUPR-124 PO; +TOPI-23 PO
[2019-03-16] MEDS: NORMOSOL R SOLN(*) 1000 ML BAG 1,000 ML IV PRN ×2 (10:58→13:46)
[2019-03-16] MEDS ORDERED: CELECOXIB 200 MG CAP PO ONE (11:00)
[2019-03-16] MEDS ORDERED: LIDOCAINE/SOD BICARB 8.4% SYR ID ONE (11:00)
[2019-03-16] MEDS ORDERED: MIDAZOLAM 2 MG/2 ML VIAL IVP PRN (11:00)
[2019-03-16] MEDS ORDERED: ceFAZolin(*) 1 GM VIAL 1 GM in NS(*) 0.9% 100 ML MINI-BAG 100 ML IVPB ONE (11:00)
[2019-03-16 11:32] VITALS: BP 131/86
[2019-03-16] MEDS ORDERED: PROPOFOL EMUL(*) 10MG/ML 20 ML 20 ML ONE (12:03)
[2019-03-16] MEDS ORDERED: fentaNYL CITR 100 MCG/2 ML AMP ONE ×3 (12:03→13:57)
[2019-03-16] MEDS ORDERED: LIDOCAINE MPF 1% 5 ML VIAL ONE (12:03)
[2019-03-16] MEDS ORDERED: BUPIV/EPI 0.25% 1:200,000 50ML INFIL ONE (12:42)
[2019-03-16] MEDS ORDERED: DEXAMETHASONE SOD 4 MG/ML VIAL ONE (13:07)
[2019-03-16] MEDS ORDERED: ONDANSETRON 4 MG/2 ML VIAL ONE (13:08)
[2019-03-16] MEDS ORDERED: KETOROLAC 30 MG/ML VIAL ONE (13:08)
[2019-03-16] MEDS ORDERED: MEPERIDINE HCL 50 MG/ML SDV 50 MG/ML VIAL ONE (13:48)
--- NOTE | 2019-03-16 14:05 | OPERATIVE REPORT 1 ---
EVENT DATE: March 16, 2019 SURGEON: Espinoza Mooney MD ANESTHESIOLOGIST: Shahbaz Rider MD ANESTHESIA: General LMA. MARINE DIVER: None. PREOPERATIVE DIAGNOSIS Arthrofibrosis of the right knee. POSTOPERATIVE DIAGNOSIS Arthrofibrosis of the right knee. PROCEDURE PERFORMED Right knee closed manipulation under anesthesia and sedation. COMPLICATIONS None. FINDINGS The patient had a tight right knee, but was amenable for manipulation and did gain a significant amount of motion associated with it. ESTIMATED BLOOD LOSS None. DRAINS None. IMPLANTS USED None. SPECIMENS None TOURNIQUET TIME Nonapplicable. INDICATIONS AND HISTORY This patient is a 58-year-old female that presented to my clinic for evaluation of stiffness and irritation after a total knee arthroplasty. She was failing to get her motion associated with the therapy and had reached a hard stop and so therefore she wanted to undergo a closed manipulation under anesthesia. I told her there was a high chance of tearing tissue associated with this by definition by doing a total knee arthroplasty manipulation. We also talked about loosing components, fractures, and also other complications associated with it. She wanted to go ahead with that and agreed to do therapy for multiple straight days associated with it afterward. She understood there was no guarantee it made it better but this should give her more relief and motion associated with it. DESCRIPTION OF PROCEDURE As the patient was brought in the operating room, she and the procedure were both verified. She was given sedation by anesthesia and LMA was placed. Once we gave her a neuromuscular block, we then proceed with a timout, verifying the correct patient and procedure. I then performed a closed manipulation doing extension first. We were able to get her to 0-degrees of extension, but unfortunately she would spring back to about 2 or 3-degrees, but we were able to get her to full extension. I then worked on flexion. She started at about 90- degrees of flexion and we were able to get her slowly to about 130 with one small audible pop associated with this. There was no obvious defects associated with the quad after the pop and we were able to flex and extend her knee back and forth pretty well after this and there was just a little bit of crepitus associated with this. Once we were able to get her motion, we then measured it with the goniometer from 0 to 130 but once again she more naturally sat at about 3-degrees to 125-degrees without any force, but we did get her significant improvement associated with this. She was then awakened and extubated and transferred to the PACU in stable condition by Dr. Rider. She will continue with therapy as we go. PATOD
[2019-03-16] MEDS ORDERED: HYDR-653 PO (14:19)
[2019-03-16 14:45] VITALS: BP 119/79
[2019-03-16] MEDS ORDERED: APAP/HYDROCODONE 325/5 TAB PO ONE (15:15)
[2019-03-16 15:20] VITALS: BP 123/76
--- NOTE | 2019-03-16 15:32 | NUR ---
SBAR AND TRANSFER OF CARE TO [facility]
[2019-03-16 15:45] VITALS: BP 123/69
[2019-03-16 15:48] VITALS: BP 129/96
== END 2019-03-16 14:45 | disposition home or self-care (01) ==
LOC: OR 00:47
PROVIDERS: ATTEND Orthopaedic Surgery
DX: M24.661 Ankylosis, right knee (principal)
CPT/HCPCS: 27570; J1100; J1885; J2001; J2175; J2405; J2704; J3010